=== PATIENT | male | born 1940 | race Caucasian/White ===

== ENCOUNTER → 2021-06-16 13:51 | Outpatient (BNVA) | payer MEDICARE, SELFPAY | PROVIDERS: Family Provider Family Medicine; PCP Family Medicine; Visit Provider Nurse Practitioner Family | DX: R39.9 Unspecified symptoms and signs involving the genitourinary system (principal); R35.0 Frequency of micturition; R82.81 Pyuria | CPT/HCPCS: 81003; 87077; 87086; 87184 ==

== ENCOUNTER → 2021-07-07 07:55 | Outpatient (BNVA) | payer MEDICARE, SELFPAY | PROVIDERS: Family Provider Family Medicine; PCP Family Medicine; Visit Provider Urology | DX: R39.9 Unspecified symptoms and signs involving the genitourinary system | CPT/HCPCS: 81003 ==

== ENCOUNTER → 2021-08-20 09:19 | Outpatient (BNVA) | payer MEDICARE, SELFPAY | PROVIDERS: Family Provider Family Medicine; PCP Family Medicine; Visit Provider Urology | DX: N39.0 Urinary tract infection, site not specified (principal) | CPT/HCPCS: 81003 ==

== ENCOUNTER 2021-12-02 09:32 | Outpatient (CLI) | payer MEDICARE, SELFPAY ==
--- NOTE | 2021-12-02 09:42 | MM_ITS ---
WS: [id number] DIAGNOSTIC BILATERAL 3D TOMOSYNTHESIS DIGITAL MAMMOGRAM WITH CAD RIGHT breast ultrasound, limited. HISTORY: RT BREAST LUMP 9 O'CLOCK COMPARISON: None available. TECHNIQUE: Bilateral craniocaudad, mediolateral oblique, and mediolateral views are submitted. Spot c ompression RIGHT CC. Computer aided detection utilized. Breast composition: There are scattered areas of fibroglandular density. There is a dense soft tissue mass centered just posterior to the RIGHT nipple measuring 3.2 x 2.1 cm. No corresponding abnormalit y on the LEFT. No suspicious calcifications or nipple retraction. RIGHT breast ultrasound, limited. There is a focal ill-defined soft tissue mass of decreased echogenicity posterior to the area look. T his mass measures 2.8 x 0.8 x 1.9 cm. Slight increased vascularity. Mass does not have the typical ap pearance of gynecomastia. I still suspect this is probably gynecomastia. MM/[place] [address] IMPRESSION: BI-RADS: 4-Suspicious Finding-Biopsy Should Be Considered FOLLOW UP: Biopsy Recommended Ultrasound-guided biopsy recommended of the soft tissue mass posterior to the R IGHT nipple. Favor this is probably an atypical site of gynecomastia.
== END 2021-12-02 09:33 | disposition home or self-care (01) ==
LOC: RAD 09:33
PROVIDERS: Family Provider Family Medicine; PCP Family Medicine; Visit Provider Family Medicine
DX: N63.15 Unspecified lump in the right breast, overlapping quadrants (principal)
CPT/HCPCS: 76642; 77062

== ENCOUNTER 2021-12-18 10:52 | Emergency (ER) | payer MEDICARE, SELFPAY ==
--- NOTE | 2021-12-18 10:56 | CT_ITS ---
WS: [id number] CT HEAD NONCONTRAST HISTORY: ams TECHNIQUE: Contiguous axial imaging performed through the brain in 2.5 mm imaging. Bone and soft tiss ue windows. Sagittal and coronal reformats reviewed. All CT scans at [facility] use at least one of these dose optimization techniques: automated exposure control; mA and/or kV adjustment per pa tient size (includes targeted exams where dose is matched to clinical indication); or iterative recon struction. DLP: 965.45 mGy.cm COMPARISON: None available. No acute intracranial hemorrhage, midline shift or mass effect. Mild bilateral atrophy and mild chronic microvascular ischemic disease. Calcification is noted along the interhemispheric falx. Ventricles: Normal size with no hydrocephalus. No inferior displacement of the cerebellar tonsils. Mild atherosclerosis intracranial carotid arterie s. Paranasal sinuses: As visualized are clear. Mastoid air cells: Well pneumatized. Calvarium and scalp: Skull is intact with no soft tissue edema or swelling. CT/CT head wo con* 19080 IMPRESSION: 1. No acute intracranial hemorrhage. 2. Mild atrophy and mild small vessel ischemic disease.
--- NOTE | 2021-12-18 10:56 | XR_ITS ---
WS: [email or web address] Portable AP upright chest, 12/18/2021 Clinical Data: ams Comparison: None. Findings: No nodules, masses or effusions are seen. The heart is normal. The pulmonary vascularity is not increased. No pneumonia or pneumothorax is seen. The right diaphragm is elevated. The aortic arc h and descending thoracic aorta show minimal calcification and tortuosity. XR/XR chest 1V portable [id number] Impression: Atherosclerosis.
--- NOTE | 2021-12-18 10:57 | ECG_ITS ---
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 Measurements Intervals [place] Rate: 51 P: 35 LA: 201 QRS: -34 QRSD: 115 T: 51 QT: 401 QTc: 370 Interpretive Statements SINUS BRADYCARDIA WITH OCCASIONAL SUPRAVENTRICULAR PREMATURE COMPLEXES LEFT AXIS DEVIATION [QRS AXIS < -30] ANTEROSEPTAL MYOCARDIAL INFARCTION , OF INDETERMINATE AGE [40+ ms Q WAVE IN V1-V4] INTERPRETATION BASED ON A DEFAULT AGE OF 40 YEARS No previous ECG available for comparison Electronically Signed On 12-18-2021 18:08:02 CDT by Julio Benitez M.D. [id number] f
[2021-12-18 11:11] VITALS: BP 153/94; PULSE 72; RESP 15; TEMP 36.7; O2SAT 97; BMI 27.6
[2021-12-18 11:39] VITALS: BP 141/80; PULSE 52; RESP 16; O2SAT 98
[2021-12-18 11:52] LABS: Basophils # 0.1 10^3/uL (0.0-0.1); Basophils % 0.9 %; Eosinophils # 0.2 10^3/uL (0.0-0.8); Eosinophils % 4.2 %; Hematocrit 44.2 % (42.0-52.0); Hemoglobin 14.6 g/dL (11.7-16.6); Lymphocytes # 1.4 10^3/uL (0.8-4.8); Lymphocytes % 24.8 %; Mean Corpuscular Hemoglobin 31.3 pg (28.0-34.0); Mean Corpuscular Volume 94.6 fl (80-94); Mean Platelet Volume 10.7 fL (7.4-10.4); Monocytes # 0.5 10^3/uL (0.2-0.9); Monocytes % 7.8 %; Neutrophils # 3.59 10^3/uL (1.8-7.7); Neutrophils % 62.1 %; Nucleated Red Blood Cells % 0 %; Platelet Count 168 10^3/cmm (130-400); Red Blood Count 4.67 10^6/uL (4.1-5.3); Red Cell Distribution Width 13.3 % (12.1-15.1); White Blood Count 5.8 10^3/uL (4.0-10.0)
[2021-12-18 12:24] LABS: Alanine Aminotransferase 23 U/L (0-41); Albumin Level 4.7 g/dL (3.5-5.2); Alkaline Phosphatase 44 IU/L (40-130); Anion Gap 15.9 (5-19); Aspartate Amino Transferase 27 U/L (0-40); Blood Urea Nitrogen 21 mg/dL (8-23); Carbon Dioxide 24 mmol/L (22-29); Chloride 103 mmol/L (98-107); Creatinine Clr Calc Pharmacy 69.7185; Globulin 2.5 g/dL (1.3-4.6); Glucose 113 mg/dL (65-115); Lipase 35 U/L (13-60); Osmolality Calculated 292 mOsm/kg (285-295); Potassium 3.9 mmol/L (3.5-5.1); Sodium 139 mmol/L (136-145); Total Bilirubin 0.5 mg/dL (0.15-1.2); Total Protein 7.2 g/dL (6.6-8.7)
--- NOTE | 2021-12-18 12:28 | W.ED.GENADLT ---
HPI - General Adult General: Chief complaint: Altered Mental Status Stated complaint: AMS Time Seen by Provider: 12/18/21 11:29 History of Present Illness: Patient is a 81-year-old male with history of hypertension, recurrent UTI, aortic valve replacement who presents the emergency room for concerns of acute transient memory loss. Patient tells me that he was raking stones earlier today when he suddenly became disoriented. Patient tells me for 30 minutes he cannot remember who he was where he was or any details about his life. After that period of time, patient regained all memory. Patient reports that he did not have any other focal neurological deficit during this time. Patient also denies any sensation of lightheadedness, chest pain, shortness breath, palpitation, nausea/vomiting, fever/chills. Patient tells me 5 years ago he has had similar episode of transient memory loss lasting for similar period of time. Onset:1 hr ago Duration:30 minutes Location:home Severity:moderate Associated symptoms: Deny chest pain, dyspnea, nausea, rash, palpitations or vomiting Review of Systems Const: Denies: fever(s) or chills Eyes: Denies: change in vision ENMT: Denies: mouth pain Card: Denies: chest pain or palpitations Resp: Denies: dyspnea or non-productive cough GI: Denies: abdominal pain, nausea, vomiting or diarrhea : Denies: dysuria Musc: Denies: extremity pain Skin/Breast: Denies: rash or new lesions Neuro: Reports: other (+transient memory loss); Denies: weakness in extremities Psych: Reports: other (Normal mood) Glen/Lymph: Denies: easy bruising PFSH ED PFSH: Medical History History of hypertension Lower urinary tract symptoms (LUTS) Recurrent UTI Surgical History Hx of aortic valve replacement Family History Father , AT AGE 84 PROSTATE CANCER Cancer Sister Cancer BREAST Mother , at age 62 Aortic aneurysm Social History Alcohol intake: former Marital status: Current occupational status: retired History of recent travel: No Physical Exam Const: COMMON NORMALS: alert HENMT: COMMON NORMALS: atraumatic HEAD & SCALP: atraumatic MOUTH: moist mucous membranes not abnormal Eye: COMMON NORMALS: EOMs intact bilaterally and conjunctivae normal CONJUNCTIVA: Yes conjunctivae normal Neck/C-Spine: COMMON NORMALS: full ROM and supple Resp: COMMON NORMALS: normal respiratory effort and clear to auscultation bilaterally AUSCULTATION: clear to auscultation bilaterally Cardio: COMMON NORMALS: regular rate RATE: regular rate GI: COMMON NORMALS: Soft to palpation and non-tender PALPATION: Yes Soft to palpation Extremity: COMMON NORMALS: full ROM Neuro: SENSORIUM/ORIENTATION: Yes alert MOTOR EXAM: No Abnormal motor strength present and Other motor observations present (no focal motor deficits) OTHER: Mental status? Awake, alert, and oriented to self, year, month, location, and situation.? Following simple axial and appendicular commands.? Has appropriate fund of knowledge, comprehension, and insight.? Able to recall and understands pertinent aspects of medical history and current treatment status.? ? Language? Speech is fluent without word-finding difficulties.? Intact naming, expression, reception manager, and repetition.? ? Cranial nerves? 2,3,4,6: PERRL, EOMI with no nystagmus. 5: Intact sensation to light touch, symmetric? 7: Smile symmetrical, no facial droop.? 8: Hearing grossly intact.? 9,10: Normal palate movement.? 11: Normal strength in trapezius bilaterally 12: Tongue protrudes midline.? ? Motor examination? Normal bulk & tone. Strength as follows (R/L): Delts (5/5), Biceps (5/5), Triceps (5/5), Wrist ext (5/5), hip flexors (5/5), plantarflexors (5/5), dorsiflexors (5/5). Sensation? Light Touch: Grossly intact and equal in upper and lower extremities bilaterally? Romberg: Negative.? Distal joint position sense intact ? Coordination? Aipdaq-hn-ujyk-finger movements intact without dysmetria or past-pointing.? Rapid fingertaps: preserved amplitude without decriment.? No tremor, myoclonus or truncal ataxia.? ? Gait/stance? Steady, normal narrow base gait with appropriate arm swing and turning.? Tandem gait without hesitation or loss of balance. Psych: COMMON NORMALS: speech normal SPEECH: Yes normal speech MOOD & AFFECT: Yes euthymic mood Course Vital Signs: Vital signs: Vital Signs Temperature 98.0 F 12/18/21 11:11 Pulse Rate 63 12/18/21 13:30 Respiratory Rate 18 12/18/21 13:30 Blood Pressure 148/79 12/18/21 13:30 Pulse Oximetry 97 12/18/21 13:30 [facility] - General Adult Medical Decision Making 81-year-old male with history of UTI, hypertension, aortic valve replacement presenting to the emergency room with transient memory loss. Patient says that he is no longer disoriented and remember things currently. Physical exam, patient has intact neuro logical exam. Given presentation, it is entirely unclear what happened. Patient's further transient episode of memory loss lasted for 30 minutes. Patient had a prior episode 5 years ago. Given transient altered mental status, I do not suspect this is TIA or stroke as patient did not have any other focal sensory or motor neurological deficits during the episode. Will work patient up for altered mental status. Lab work-up showed no focal findings. CT brain is negative for any acute findings. X-ray chest not showing signs of pneumonia. I do not suspect the patient had any cardiac event or syncope during the these episode as patient was awake and alert and did not report any sensation of lightheadedness. It is unclear at this point what exactly happened earlier today. I have given patient follow up with our employment evaluator/case manager to be seen by our outpatient Neuroogy for evaluation for transient memory loss. Patient aware of a call from our employment evaluator/case manager to schedule for appointment(s) and verbalizes understanding of the importance of following up. Disposition: Discharge. Patient counseled regarding diagnostic impression, treatment plan. Patient given ED strict return precautions to return for continuation, worsening, or development of new symptoms. Instructed to f/u w/ PCP and Neurology regarding symptoms today. Patient verbalized understanding. Lab Data : 12/18/21 11:45 12/18/21 11:45 Radiology Impressions Chest X-Ray 12/18/21 10:56 Impression: Atherosclerosis. Head CT 12/18/21 10:56 IMPRESSION: 1. No acute intracranial hemorrhage. 2. Mild atrophy and mild small vessel ischemic disease. Laboratory Results WBC 5.8 10^3/uL (4.0-10.0) 12/18/21 11:45 RBC 4.67 10^6/uL (4.1-5.3) 12/18/21 11:45 Hgb 14.6 g/dL (11.7-16.6) 12/18/21 11:45 Hct 44.2 % (42.0-52.0) 12/18/21 11:45 MCV 94.6 fl (80-94) H 12/18/21 11:45 MCH 31.3 pg (28.0-34.0) 12/18/21 11:45 MCHC 33.0 g/dL (30.0-36.0) 12/18/21 11:45 RDW 13.3 % (12.1-15.1) 12/18/21 11:45 Plt Count 168 10^3/cmm (130-400) 12/18/21 11:45 MPV 10.7 fL (7.4-10.4) H 12/18/21 11:45 Neut % (Auto) 62.1 % 12/18/21 11:45 Lymph % (Auto) 24.8 % 12/18/21 11:45 Travis % (Auto) 7.8 % 12/18/21 11:45 Eos % (Auto) 4.2 % 12/18/21 11:45 Baso % (Auto) 0.9 % 12/18/21 11:45 Neut # (Auto) 3.59 10^3/uL (1.8-7.7) 12/18/21 11:45 Lymph # (Auto) 1.4 10^3/uL (0.8-4.8) 12/18/21 11:45 Travis # (Auto) 0.5 10^3/uL (0.2-0.9) 12/18/21 11:45 Eos # (Auto) 0.2 10^3/uL (0.0-0.8) 12/18/21 11:45 Baso # (Auto) 0.1 10^3/uL (0.0-0.1) 12/18/21 11:45 Nucleated RBC % (auto) 0 % 12/18/21 11:45 Nucleated RBCs # 0.0 /100WBC 12/18/21 11:45 Sodium 139 mmol/L (136-145) 12/18/21 11:45 Potassium 3.9 mmol/L (3.5-5.1) 12/18/21 11:45 Chloride 103 mmol/L (98-107) 12/18/21 11:45 Carbon Dioxide 24 mmol/L (22-29) 12/18/21 11:45 Anion Gap 15.9 (5-19) 12/18/21 11:45 BUN 21 mg/dL (8-23) 12/18/21 11:45 Creatinine 0.9 mg/dL (0.7-1.2) 12/18/21 11:45 GFR Calculation Not Reportable 12/18/21 11:45 Glucose 113 mg/dL (65-115) 12/18/21 11:45 Calculated Osmolality 292 mOsm/kg (285-295) 12/18/21 11:45 Calcium 10.0 mg/dL (8.5-10.5) 12/18/21 11:45 Total Bilirubin 0.5 mg/dL (0.15-1.2) 12/18/21 11:45 AST 27 U/L (0-40) 12/18/21 11:45 ALT 23 U/L (0-41) 12/18/21 11:45 Alkaline Phosphatase 44 IU/L (40-130) 12/18/21 11:45 Troponin T Baseline 17 ng/L (0-15) H 12/18/21 11:45 Troponin T 120 Minute 14.94 ng/L (0-15) 12/18/21 13:48 Delta Troponin T -2.06 ABS# (0-10) L 12/18/21 13:48 Total Protein 7.2 g/dL (6.6-8.7) 12/18/21 11:45 Albumin 4.7 g/dL (3.5-5.2) 12/18/21 11:45 Globulin 2.5 g/dL (1.3-4.6) 12/18/21 11:45 Lipase 35 U/L (13-60) 12/18/21 11:45 Urine Color Yellow (Yellow) 12/18/21 13:00 Urine Appearance Clear (CLEAR) 12/18/21 13:00 Urine pH 6 (5-7) 12/18/21 13:00 Ur Specific [place] 1.010 (1.005-1.030) 12/18/21 13:00 Urine Protein Neg (Negative) 12/18/21 13:00 Urine Glucose (UA) Norm (Normal) 12/18/21 13:00 Urine Ketones Negative (Negative) 12/18/21 13:00 Urine Blood Neg (Negative) 12/18/21 13:00 Urine Nitrate Negative (Negative) 12/18/21 13:00 Urine Bilirubin Neg (Negative) 12/18/21 13:00 Urine Urobilinogen Norm mg/dL (Negative) 12/18/21 13:00 Ur Leukocyte Esterase Negative (Negative) 12/18/21 13:00 Imaging Data Other Imaging: Radiologist's impression: [employer] [place] [address] CT Scan Report Signed Patient: Magdy Varner Unit #: [id number] : 1940 Age/Sex: 81 / M ADM Date: 12/18/21 Loc: ER Room/Bed: Attending Dr: Ordering Provider/Ordering MD: Ami Stinson MD Date of Service: 12/18/21 Procedure(s): CT head wo con* [id number] Accession Number(s): [id number] Report Number: [id number] WS: [id number] CT HEAD NONCONTRAST HISTORY: ams TECHNIQUE: Contiguous axial imaging performed through the brain in 2.5 mm imaging. Bone and soft tissue windows. Sagittal and coronal reformats reviewed.? [facility] at [facility] one of these dose optimization techniques: automated exposure control; mA and/or kV adjustment per patient size (includes targeted exams where dose is matched to clinical indication); or iterative reconstruction. DLP: 965.45 mGy.cm COMPARISON: None available. No acute intracranial hemorrhage, midline shift or mass effect. Mild bilateral atrophy and mild chronic microvascular ischemic disease. Calcification is noted along the interhemispheric falx. Ventricles:? Normal size with no hydrocephalus. No inferior displacement of the cerebellar tonsils. Mild atherosclerosis intracranial carotid arteries. Paranasal sinuses: As visualized are clear. Mastoid air cells: Well pneumatized. Calvarium and scalp: Skull is intact with no soft tissue edema or swelling. CT/CT head wo con* [id number] IMPRESSION: ? 1.? No acute intracranial hemorrhage. 2.? Mild atrophy and mild small vessel ischemic disease. ? Dictated By: Lupe Hutchins DO Signed By: Lupe Hutchins DO Signed Date/Time: 12/18/21 1229 DD/ [address] [address] XRay Report Signed Patient: Magdy Varner Unit #: [id number] : 1940 Age/Sex: 81 / M ADM Date: 12/18/21 Loc: ER Room/Bed: Attending Dr: Ordering Provider/Ordering MD: Ami Stinson MD Date of Service: 12/18/21 Procedure(s): XR chest 1V portable [id number] Accession Number(s): [id number] Report Number: [id number] WS: [email or web address] Portable AP upright chest, 12/18/2021 Clinical Data: ams Comparison: None. Findings: No nodules, masses or effusions are seen. The heart is normal. The pulmonary vascularity is not increased. No pneumonia or pneumothorax is seen. The right diaphragm is elevated. The aortic arch and descending thoracic aorta show minimal calcification and tortuosity. XR/XR chest 1V portable [id number] Impression: Atherosclerosis. ? Dictated By: Fina Boone MD Signed By: Fina Boone MD Signed Date/Time: 12/18/21 1153 DD/ 1153 Discharge Plan Discharge Patient Disposition: Home Clinical Impression: Intermittent memory loss Condition: Stable Prescriptions: No Action aspirin [Adult Aspirin Regimen] 81 mg tablet,delayed release (DR/EC) 81 mg PO DAILY 0RF atorvastatin 40 mg tablet 40 mg PO DAILY 0RF nitrofurantoin monohyd/m-cryst [Macrobid] 100 mg capsule 100 mg PO BID PRN0RF Rx Instructions: must administer with a meal/food carvedilol 6.25 mg tablet 3.125 mg PO BID Qty: 180 3RF Rx Instructions: must administer with a meal/food losartan 25 mg tablet 25 mg PO DAILY Qty: 90 3RF Discharge Orders: Discharge ED (Routine); Ordered 12/18/21 Ordered By: Ami Stinson Referrals: Daya Velez MD [Primary Care Provider] - Discharge Diet: Advance as tolerated Discharge Activity: Increase activity as tolerated Patient Instructions: Transient Global Amnesia (ED) Activity Restrictions/Additional Instructions: Our employment evaluator/case manager will have you follow-up with a Neurologist in the next few days. You would be expected to have a phone call with our employment evaluator/case manager who will put you on the schedule. You can expect a call from us in the next 2-3 days. If you don't hear from us, call us back in the emergency room at [phone]. Come back to the emergency room if any weakness in your arms or legs, if you have any facial droop, double vision, visual blindness, visual field deficits, balance problem, inability to walk, language difficulties or any new or concerning complaints. Coding Level of Care Code ED Hospice Volunteer for Angelia Fwbrannon Exam Comprehensive
[2021-12-18 12:29] LABS: Troponin(5th) Baseline 17 ng/L (0-15)
[2021-12-18 12:47] VITALS: BP 141/80; PULSE 60; RESP 20; O2SAT 97
--- NOTE | 2021-12-18 12:57 | ECG_ITS ---
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 Measurements Intervals [place] Rate: 51 P: 35 MN: 201 QRS: -34 QRSD: 115 T: 51 QT: 401 QTc: 370 Interpretive Statements SINUS BRADYCARDIA WITH OCCASIONAL SUPRAVENTRICULAR PREMATURE COMPLEXES LEFT AXIS DEVIATION [QRS AXIS < -30] ANTEROSEPTAL MYOCARDIAL INFARCTION , OF INDETERMINATE AGE [40+ ms Q WAVE IN V1-V4] No previous ECG available for comparison Electronically Signed On 12-18-2021 18:13:20 CDT by Julio Benitez M.D. [id number] f
[2021-12-18 13:10] LABS: Add Urine Microscopic? NO; Charge for UA Resulting for Rev
[2021-12-18 13:30] VITALS: BP 148/79; PULSE 63; RESP 18; O2SAT 97
[2021-12-18 13:31] LABS: Bilirubin Urine Neg (Negative); Blood Urine Neg (Negative); Glucose Urine UA Norm (Normal); Ketones Urine Negative (Negative); Nitrate Urine Negative (Negative); Protein Urine Neg (Negative); Urine Appearance Clear (CLEAR); Urine Color Yellow (Yellow); pH Urine 6 (5-7)
[2021-12-18 13:32] LABS: Leukocyte Esterase Urine Negative (Negative); Urobilinogen Urine Norm (Negative)
[2021-12-18 14:21] LABS: Troponin 5 2HR 14.94 ng/L (0-15)
[2021-12-18 14:51] LABS: Troponin 5 2HR Delta -2.06 ABS# (0-10)
--- NOTE | 2021-12-19 15:01 | DCPLANNER ---
Addendum entered by Ana Marina 01/07/22 20:12: Patient had a follow up appointment scheduled with Dr. Baires - appointment was rescheduled. Addendum entered by Ana Marina 01/01/22 17:03: Patient has a follow up appointment scheduled for Wednesday, January 05, 2022 at 12:30 with Jeronimo at neurology. Clinic will call patient with appointment information. Original Note: onsite case manager had message to schedule a follow up appointment for patient with neurology. onsite case manager sent patients information to the front staff at neurology. Patients information will be printed and reviewed. Clinic will call patient with appointment information.
== END 2021-12-18 14:54 | disposition home or self-care (01) ==
PROVIDERS: Emergency Provider Emergency Medicine; PCP Family Medicine
DX: R41.3 Other amnesia (principal); I10 Essential (primary) hypertension; Z87.440 Personal history of urinary (tract) infections; Z95.2 Presence of prosthetic heart valve; Z79.82 Long term (current) use of aspirin
CPT/HCPCS: 36415; 70450; 71045; 80053; 81003; 83690; 84484; 85025; 93005; 99283

== ENCOUNTER 2021-12-26 07:51 | Outpatient (CLI) | payer MEDICARE, SELFPAY ==
--- NOTE | 2021-12-26 07:58 | US_ITS ---
WS: [email or web address] ULTRASOUND-GUIDED RIGHT BREAST BIOPSY HISTORY: ABNORMAL MAMMO R BREAST, male patient. COMPARISON: 12/02/2021 ultrasound and mammogram Procedure, risks and complications are explained to the patient. Medications are reviewed. Consent is obtained. The mass in the RIGHT breast is localized with ultrasound. Mass localizes to the subareolar region. S kin is cleansed with ChloraPrep and anesthetized with 1% buffered lidocaine. Small dermatome is made. Under sterile conditions mass is biopsied with a 14-gauge Achieve needle. Multiple core biopsies are performed. Material placed in formalin and sent to pathology for review. No complications encountere d. Breast tissue marker (Wir3s ultrasound enhanced ribbon): None. Patient left the radiology suite with no complications. Patient is instructed to return to [facility] or [facility] with any concerns. US/[place] [id number] IMPRESSION: 1. Uncomplicated core needle biopsy RIGHT breast asymmetry in the subareolar r egion. PATHOLOGY: Benign fibroadipose tissue with stromal sclerosis and chronic inflam mation. No malignancy. RECOMMENDATION: See report No further evaluation is necessary unless clinically there is continued concern for this nodule or increases in size. If there is an increase in size or kamar rning features clinically, surgical removal should be considered.
== END 2021-12-26 07:52 | disposition home or self-care (01) ==
LOC: RAD 07:52
PROVIDERS: PCP Family Medicine; Visit Provider Family Medicine
DX: N63.41 Unspecified lump in right breast, subareolar (principal)
CPT/HCPCS: 19083; 88305

== ENCOUNTER 2022-04-09 06:00 | Outpatient (RCR) | payer MEDICARE, SELFPAY | END 2022-04-23 23:59 | disposition home or self-care (01) | LOC: GPT 06:00 | PROVIDERS: PCP Family Medicine; Referring Provider Nurse Practitioner Family; Visit Provider Nurse Practitioner Family | DX: M25.532 Pain in left wrist (principal) | CPT/HCPCS: 97110; 97140; 97161; 97164 ==

== ENCOUNTER 2022-07-08 10:41 | Outpatient (CLI) | payer MEDICARE, SELFPAY ==
--- NOTE | 2022-07-08 11:15 | USCV_ITS ---
Magdy Varner Age: 82 Gender: M : 1940 Exam Date: 07/08/2022 11:01 Ordering Phys: Modesto Castillo MD ([email or web address]) Technologist: Scot Rubio Exam Location: [facility] Indication: dyspnea BP: 132 / 74 HR: 76 Rhythm: Sinus Technical Quality: Adequate MEASUREMENTS (Male / Female) Normal Values 2D ECHO LV Diastolic Diameter PLAX 3.8 cm 4.2 - 5.9 / 3.9 - 5.3 cm LV Systolic Diameter PLAX 2.4 cm IVS Diastolic Thickness 1.0 cm 0.6 - 1.0 / 0.6 - 0.9 cm IVS Systolic Thickness 1.3 cm LVPW Diastolic Thickness 1.7 cm 0.6 - 1.0 / 0.6 - 0.9 cm LVPW Systolic Thickness 1.8 cm LVOT Diameter 2.0 cm LV Ejection Fraction 2D Teich 69.3 % LV Ejection Fraction MOD 2C 65.6 % LV Ejection Fraction 2C AL 66.4 % LA Diameter 3.6 cm LA Width 4.3 cm LA Height 5.2 cm RA Width 4.1 cm RA Height 5.4 cm Aorta at Sinotubular Diameter 2.9 cm M-MODE Aortic Annulus Diameter 2.8 cm LA Ao Ratio MM 1.3 MV E Point Septal Separation 1.1 cm DOPPLER AV Peak Velocity 265.5 cm/s LVOT Peak Velocity 97.0 cm/s AV Area Cont Eq vti 1.2 cm squared AV Area Cont Eq pk 1.2 cm squared MV Peak Velocity 119.0 cm/s MV Area PHT 3.3 cm squared Mitral E to A Ratio 0.8 MV E' Velocity 74.0 cm/s TR Peak Velocity 262.5 cm/s TR Peak Gradient 27.6 mmHg TR Mean Velocity 195.2 cm/s TR Mean Gradient 16.5 mmHg TR Velocity Time Integral 73.2 cm Right Atrial Pressure 3.0 mmHg Pulmonary Artery Systolic Pressu 30.6 mmHg PV Peak Velocity 73.0 cm/s RV Acceleration Time 0.1 s RV Ejection Time 0.3 s RV AcT/ET 0.4 FINDINGS Left Ventricle Normal left ventricular size and systolic function, EF 69 %. No regional wall motion abnormalities. Mild left ventricular hypertrophy. Grade I/IV diastolic dysfunction (abnormal relaxation filling pattern), normal to mildly elevated filling pressures. Right Ventricle The right ventricle is normal in size and function. Right Atrium The right atrium is normal in size. Left Atrium Mildly increased left atrial size. Mitral Valve Thickened mitral valve. Trace mitral valve regurgitation. Aortic Valve Bioprosthetic valve at the aortic position appears to be well- seated. Peak velocity of 2.72 m/s with a peak gradient of 29.5 and a mean gradient of 13 mmHg. The valve area is calculated to be 1.2 cm squared Tricuspid Valve Mild tricuspid valve regurgitation. Estimated pulmonary artery peak systolic pressure 31 mmHg Pulmonic Valve No gross abnormalities noted Pericardium Normal pericardium without effusion. Aorta Normal ascending aorta dimension. IVC The inferior vena cava appears normal. CONCLUSIONS Normal left ventricular size and systolic function, EF 69 %. No regional wall motion abnormalities. Mild left ventricular hypertrophy. Grade I/IV diastolic dysfunction (abnormal relaxation filling pattern), normal to mildly elevated filling pressures. Bioprosthetic valve at the aortic position appears to be well- seated. Peak velocity of 2.72 m/s with a peak gradient of 29.5 and a mean gradient of 13 mmHg. The valve area is calculated to be 1.2 cm squared Mild tricuspid valve regurgitation. Estimated pulmonary artery peak systolic pressure 31 mmHg Thickened mitral valve. Trace mitral valve regurgitation. There is no pericardial effusion. There are no intracardiac masses. Compared to the study from 12/21/2018, the aortic valve appears to be replaced Dr Modesto Castillo MD [facility] (Electronically Signed) Final Date: 09 July 2022 08:43 S
== END 2022-07-08 10:42 | disposition home or self-care (01) ==
LOC: RAD 10:42
PROVIDERS: PCP Family Medicine; Visit Provider Internal Medicine Cardiovascular Disease
DX: R06.00 Dyspnea, unspecified (principal); Z95.2 Presence of prosthetic heart valve; I07.1 Rheumatic tricuspid insufficiency
CPT/HCPCS: 93306

== ENCOUNTER → 2022-08-20 09:01 | Outpatient (BNVA) | payer MEDICARE, SELFPAY | PROVIDERS: PCP Family Medicine; Visit Provider Urology | DX: N40.1 Benign prostatic hyperplasia with lower urinary tract symptoms (principal); N39.0 Urinary tract infection, site not specified; R39.9 Unspecified symptoms and signs involving the genitourinary system | CPT/HCPCS: 51741; 51798; 81003; 99213 ==

== ENCOUNTER → 2022-09-15 10:17 | Outpatient (BNVA) | payer MEDICARE, SELFPAY | PROVIDERS: PCP Family Medicine; Visit Provider Internal Medicine Cardiovascular Disease | DX: I10 Essential (primary) hypertension (principal); Z95.2 Presence of prosthetic heart valve; E78.5 Hyperlipidemia, unspecified | CPT/HCPCS: 99214 ==

== ENCOUNTER → 2023-03-29 11:18 | Outpatient (BNVA) | payer MEDICARE, SELFPAY | PROVIDERS: PCP Family Medicine; Visit Provider Internal Medicine Cardiovascular Disease | DX: I10 Essential (primary) hypertension (principal); Z95.2 Presence of prosthetic heart valve; E78.5 Hyperlipidemia, unspecified | CPT/HCPCS: 99214 ==

== ENCOUNTER → 2023-12-09 10:53 | Outpatient (BNVA) | payer MEDICARE, SELFPAY | PROVIDERS: PCP Family Medicine; Visit Provider Internal Medicine Cardiovascular Disease | DX: I10 Essential (primary) hypertension (principal); Z95.2 Presence of prosthetic heart valve; E78.5 Hyperlipidemia, unspecified | CPT/HCPCS: 99214 ==

== ENCOUNTER 2023-12-20 08:28 | Outpatient (CLI) | payer MEDICARE, SELFPAY ==
--- NOTE | 2023-12-20 08:45 | USCV_ITS ---
Magdy Varner Age: 83 Gender: M : 1940 Exam Date: 12/20/2023 09:05 Ordering Phys: Modesto Castillo MD ([email or web address]) Technologist: CLEMENTE Exam Location: [facility] [place] Indication: AOV replacment for AO stenosis BP: 128 / 80 HR: 167 Rhythm: Other Technical Quality: Adequate MEASUREMENTS (Male / Female) Normal Values 2D ECHO LV Diastolic Diameter PLAX 5.2 cm 4.2 - 5.9 / 3.9 - 5.3 cm IVS Diastolic Thickness 1.2 cm 0.6 - 1.0 / 0.6 - 0.9 cm IVS Systolic Thickness 2.0 cm LVPW Diastolic Thickness 1.1 cm 0.6 - 1.0 / 0.6 - 0.9 cm LVPW Systolic Thickness 2.0 cm LVOT Diameter 2.2 cm LV Ejection Fraction 2D Teich 74.2 % LV Ejection Fraction MOD 2C 41.9 % LV Ejection Fraction 2C AL 49.5 % LA Diameter 3.6 cm RA Systolic Volume 4C AL 29.9 ml RA Systolic Volume 4C MOD 28.7 ml LA Sys Volume AL 50.5 cm cubed LA Sys Volume Index AL 17.7 cm cubed/m squared Aorta at Sinotubular Diameter 3.3 cm IVC Diameter 1.1 cm M-MODE LA Ao Ratio MM 1.4 AV Cusp Separation MM 1.3 cm DOPPLER AV Peak Velocity 269.0 cm/s LVOT Peak Velocity 94.0 cm/s AV Area Cont Eq vti 1.2 cm squared AV Area Cont Eq pk 1.3 cm squared MV Peak Velocity 100.0 cm/s MV Area PHT 3.5 cm squared Mitral E to A Ratio 0.8 TV Peak Velocity 158.5 cm/s TR Peak Velocity 161.0 cm/s TR Peak Gradient 10.4 mmHg TR Mean Velocity 173.0 cm/s TR Mean Gradient 14.3 mmHg TR Velocity Time Integral 51.2 cm Right Atrial Pressure 3.0 mmHg Pulmonary Artery Systolic Pressu 13.4 mmHg PV Peak Velocity 65.5 cm/s RV Ejection Time 0.4 s FINDINGS Left Ventricle Mild to moderate concentric left-ventricular hypertrophy. LV ejection fraction of 54%.abnormal septal motion consistent with conduction abnormality. Grade I/IV diastolic dysfunction (abnormal relaxation filling pattern), normal to mildly elevated filling pressures. Right Ventricle The right ventricle is normal in size and function. Right Atrium The right atrium is normal in size. Left Atrium Mildly increased left atrial size. Mitral Valve Thickened mitral valve. Mild mitral annular calcification. Aortic Valve The bioprosthetic valve in the aortic position appears to be well-seated.mild aortic valve regurgitation. The peak velocity across the valve is 2.69 m/s with a peak gradient of 29 and a mean gradient of 17 mmHg. The valve area calculated to be 1.24 cm squared Tricuspid Valve Trace tricuspid valve regurgitation. Pulmonic Valve Pulmonic valve not well visualized. Pericardium Normal pericardium without effusion. Aorta Normal ascending aorta dimension. IVC Inferior vena cava not visualized. CONCLUSIONS Mild to moderate concentric left-ventricular hypertrophy. LV ejection fraction of 54%.abnormal septal motion consistent with conduction abnormality. Grade I/IV diastolic dysfunction (abnormal relaxation filling pattern), normal to mildly elevated filling pressures. Mildly increased left atrial size. The bioprosthetic valve in the aortic position appears to be well-seated.mild aortic valve regurgitation. The peak velocity across the valve is 2.69 m/s with a peak gradient of 29 and a mean gradient of 17 mmHg. The valve area calculated to be 1.24 cm squared. Trace tricuspid valve regurgitation. Thickened mitral valve. Mild mitral annular calcification. Estimated pulmonary artery peak systolic pressure, probably within normal limits There is no pericardial effusion. Compared to the study from 12/21/2018, the aortic valve appears replaced Dr Modesto Castillo MD [facility] (Electronically Signed) Final Date: 23 December 2023 07:52 S
== END 2023-12-20 08:29 | disposition home or self-care (01) ==
LOC: RAD 08:28
PROVIDERS: PCP Family Medicine; Visit Provider Internal Medicine Cardiovascular Disease
DX: I08.3 Combined rheumatic disorders of mitral, aortic and tricuspid valves (principal); Z95.2 Presence of prosthetic heart valve; R06.09 Other forms of dyspnea
CPT/HCPCS: 93306

== ENCOUNTER 2024-02-23 13:01 | Emergency (ER) | payer MEDICARE, SELFPAY ==
[2024-02-23 13:03] VITALS: BP 84/57; PULSE 73; RESP 23; TEMP 36.6; O2SAT 96; BMI 31.1
--- NOTE | 2024-02-23 13:03 | XR_ITS ---
WS: [id number] Exam: XR chest 1V portable [id number] Date/Time of Exam: 02/23/2024 1:20 PM Reason For Exam: sob Comparison 12/18/2021. There is plaque atelectasis in the RIGHT lower lobe with chronic elevation of the RIGHT diaphragm. No infiltrates are noted. No pneumothorax. Cardiomediastinal silhouette is unremarkable for technique. Signs of cardiac valve replacement. Regional bony structures appear normal. XR/XR chest 1V portable [id number] IMPRESSION: 1. Plaque atelectasis in the RIGHT lower lobe with chronic elevation of the RIG HT diaphragm. No acute process identified.
--- NOTE | 2024-02-23 13:22 | ECG_ITS ---
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 Measurements Intervals [place] Rate: 73 P: 47 LA: 203 QRS: -45 QRSD: 111 T: 59 QT: 399 QTc: 443 Interpretive Statements SINUS RHYTHM WITH OCCASIONAL SUPRAVENTRICULAR PREMATURE COMPLEXES LEFT AXIS DEVIATION [QRS AXIS < -30] POSSIBLE ANTERIOR MYOCARDIAL INFARCTION , OF INDETERMINATE AGE [30 ms Q WAVE IN V3/V4, OR R < 0.2 mV IN V4] Compared to ECG 12/18/2021 11:36:39 Sinus bradycardia no longer present Myocardial infarct finding still present Electronically Signed On 02-25-2024 13:33:13 CDT by Skyler Turpin M.D. [id number]
--- NOTE | 2024-02-23 13:29 | CTR_ITS ---
PROCEDURE INFORMATION: Exam: CT Head Without Contrast Exam date and time: 02/23/2024 2:05 PM Age: 83 years old Clinical indication: Dizziness and other: Weak; Additional info: Weakness TECHNIQUE: Imaging protocol: Computed tomography of the head without contrast. Radiation optimization: All CT scans at this facility use at least one of these dose optimization techniques: automated exposure control; mA and/or kV adjustment per patient size (includes targeted exams where dose is matched to clinical indication); or iterative reconstruction. COMPARISON: CT head wo con* [id number] 12/18/2021 12:17 PM RADIATION DOSE METRICS: Total DLP (mGy-cm): 1099 FINDINGS: Brain: Normal. No hemorrhage. Unremarkable white matter. No mass effect. Cerebral ventricles: No ventriculomegaly. Paranasal sinuses: Visualized sinuses are unremarkable. No fluid levels. Mastoid air cells: Visualized mastoid air cells are well aerated. Bones: Unremarkable. No acute fracture. Soft tissues: Unremarkable. CT/CT head wo con* [id number] IMPRESSION: No acute intracranial abnormality.
[2024-02-23 13:31] LABS: Basophils % 0.7 %; Hematocrit 41.7 % (37-53); Lymphocytes # 1.2 10^3/uL (0.8-4.8); Lymphocytes % 41.6 %; Mean Corpuscular HGB Conc 33.1 g/dL (30-55); Mean Corpuscular Hemoglobin 30.6 pg (27-33); Mean Corpuscular Volume 92.5 fl (82-101); Mean Platelet Volume 12.2 fL (7.4-10.4); Monocytes # 0.2 10^3/uL (0.2-0.9); Monocytes % 5.4 %; Neutrophils # 1.55 10^3/uL (1.8-7.7); Nucleated Red Blood Cells % 0 %; Platelet Count 68 10^3/cmm (157-399); Red Blood Count 4.51 10^6/uL (3.85-5.65); Red Cell Distribution Width 14.1 % (12.1-15.1); White Blood Count 2.98 10^3/uL (3.29-11.43)
--- NOTE | 2024-02-23 13:31 | ED_ITS ---
HPI - Weakness 2 General: Chief complaint: Weakness Stated complaint: A Fib, SOB, Time Seen by Provider: 02/23/24 13:03 Source: patient and EMS Mode of arrival: EMS Limitations: no limitations History of Present Illness: 83-year-old male states he was outside w [place] picking up limbs and doing yard work on Wednesday states that it felt like he got overheated and felt nauseous lightheaded states that ever since then he has been having just generally fatigue and not feeling well. He denies any chest pain had some mild dyspnea at times denies any fever or headache. Initial blood pressure was 8457 but did reposition his cuff and checked it while I was in the room and it is 106/61 currently. Denies any vomiting Associated symptoms: Denies chest pain, chills, fever(s), headache(s), nausea or vomiting Review of Systems 2 Const: Reports: fatigue and malaise; Denies: fever(s), chills, body aches or change in appetite ENMT: Denies: throat pain or dental pain Card: Denies: chest pain Resp: Denies: dyspnea GI: Denies: abdominal pain, nausea, vomiting or diarrhea Musc: Denies: neck pain or back pain Skin/Breast: Denies: rash Neuro: Denies: headache(s) PFSH ED 2 PFSH: Medical History Hx of hyperlipidemia Family hx of colon cancer Hx of cardiac murmur Hx of chronic arthritis Urinary frequency BPH loc w urin obs/LUTS Recurrent UTI Lower urinary tract symptoms (LUTS) History of hypertension Surgical History Hx of appendectomy Hx of colonoscopy Hx of nasal sinusotomy Hx of tonsillectomy Hx of hernia repair Hx of aortic valve replacement Family History Father , AT AGE 84 PROSTATE CANCER Cancer Lung disease Stroke Sister Cancer BREAST Lung disease Mother , at age 62 Aortic aneurysm CAD (coronary artery disease) Denies family history of Diabetes Clotting disorder Dementia Chronic kidney disease (CKD) Suicide Anesthesia complication Bleeding disorder Social History Smoking and tobacco/nicotine status: never used tobacco/nicotine Alcohol intake: former Marital status: Current occupational status: retired Physical Exam 2 Const: COMMON NORMALS: no acute distress, patient oriented x3 and healthy appearing HENMT: COMMON NORMALS: normocephalic and atraumatic HEAD & SCALP: n ormocephalic and atraumatic Neck/C-Spine: COMMON NORMALS: full ROM and supple Chest: COMMONS NORMALS: normal inspection of the chest and normal palpation of entire chest wall Resp: COMMON NORMALS: normal respiratory effort, No retractions, No use of accessory muscles and clear to auscultation bilaterally AUSCULTATION: clear to auscultation bilaterally Cardio: COMMON NORMALS: regular rate, regular rhythm and No murmurs present (Cardio) RATE: regular rate RHYTHM: regular rhythm GI: COMMON NORMALS: Normal to inspection, nondistended, normoactive bowel sounds present, Soft to palpation, non-tender and no masses PALPATION: Yes Soft to palpation Extremity: COMMON NORMALS: normal to inspection and full ROM Neuro: COMMON NORMALS: patient oriented x3, moves all extremities and no focal motor deficits Psych: COMMON NORMALS: mental status grossly normal, Normal thought process present and cooperative THOUGHT PROCESS: Normal thought process present Skin: COMMON NORMALS: no rashes or lesions noted and no wounds GENERAL SKIN EXAM: no rashes or lesions noted Course 2 Vital Signs: Vital signs: Vital Signs Temperature 97.9 F 02/23/24 13:03 Pulse Rate 83 02/23/24 15:19 Respiratory Rate 20 H 02/23/24 15:19 Blood Pressure 106/61 02/23/24 15:19 Pulse Oximetry 93 02/23/24 15:19 Oxygen Delivery Me thod Room Air 02/23/24 15:19 MDM - Weakness Medical Decision Making Patient presents here with fatigue weakness he is found to have a thrombocytopenia slight leukopenia he has had multiple tick bites he likely has a tickborne illness causing these findings he has no rash no bleeding feel he stable for discharge we will start him on doxycycline informed he is to follow- up with his PCP in 5 to 7 days to have his CBC rechecked he is return if he develops rash fever or worsening symptoms he understands agrees to plan Medical Records I reviewed the patient's medical records. Lab Data I reviewed the patient's lab results. 02/23/24 13:14 02/23/24 13:14 Radiology Impressions Chest X-Ray 02/23/24 13:03 IMPRESSION: 1. Plaque atelectasis in the RIGHT lower lobe with chronic elevation of the RIGHT diaphragm. No acute process identified. Head CT 02/23/24 13:29 IMPRESSION: No acute intracranial abnormality. Laboratory Results WBC 2.98 10^3/uL (3.29-11.43) L 02/23/24 13:14 RBC 4.51 10^6/uL (3.85-5.65) 02/23/24 13:14 Hgb 13.80 g/dL (11.27-16.99) 02/23/24 13:14 Hct 41.7 % (37-53) 02/23/24 13:14 MCV 92.5 fl (82-101) 02/23/24 13:14 MCH 30.6 pg (27-33) 02/23/24 13:14 MCHC 33.1 g/dL (30-55) 02/23/24 13:14 RDW 14.1 % (12.1-15.1) 02/23/24 13:14 Plt Count 68 10^3/cmm (157-399) L 02/23/24 13:14 MPV 12.2 fL (7.4-10.4) H 02/23/24 13:14 Neut % (Auto) 52.0 % 02/23/24 13:14 Lymph % (Auto) 41.6 % 02/23/24 13:14 [place] % (Auto) 5.4 % 02/23/24 13:14 Eos % (Auto) 0.0 % 02/23/24 13:14 Baso % (Auto) 0.7 % 02/23/24 13:14 Neut # (Auto) 1.55 10^3/uL (1.8-7.7) L 02/23/24 13:14 Lymph # (Auto) 1.2 10^3/uL (0.8-4.8) 02/23/24 13:14 [place] # (Auto) 0.2 10^3/uL (0.2-0.9) 02/23/24 13:14 Eos # (Auto) 0.0 10^3/uL (0.0-0.8) 02/23/24 13:14 Baso # (Auto) 0.0 10^3/uL (0.0-0.1) 02/23/24 13:14 Nucleated RBC % (auto) 0 % 02/23/24 13:14 Nucleated RBCs # 0.0 /100WBC 02/23/24 13:14 PT 15.30 SECONDS (12.1-14.9) H 02/23/24 13:14 INR 1.17 (0.8-1.2) 02/23/24 13:14 Sodium 139 mmol/L (136-145) 02/23/24 13:14 Potassium 3.8 mmol/L (3.5-5.1) 02/23/24 13:14 Chloride 103 mmol/L (98-107) 02/23/24 13:14 Carbon Dioxide 23 mmol/L (22-29) 02/23/24 13:14 Anion Gap 16.8 (5-19) 02/23/24 13:14 BUN 35 mg/dL (8-23) H 02/23/24 13:14 Creatinine 1.7 mg/dL (0.7-1.2) H 02/23/24 13:14 GFR Calculation Not Reportable 02/23/24 13:14 Glucose 103 mg/dL (65-115) 02/23/24 13:14 Calculated Osmolality 296 mOsm/kg (285-295) H 02/23/24 13:14 Lactic Acid 1.1 mmol/L (0.5-2.2) 02/23/24 13:49 Calcium 8.1 mg/dL (8.5-10.5) L 02/23/24 13:14 Total Bilirubin 0.7 mg/dL (0.15-1.2) 02/23/24 13:14 AST 90 U/L (0-40) H 02/23/24 13:14 ALT 76 U/L (0-41) H 02/23/24 13:14 Alkaline Phosphatase 83 U/L (40-130) 02/23/24 13:14 Troponin T Baseline 33 ng/L (0-15) H 02/23/24 13:14 Troponin T 120 Minute 27.15 ng/L (0-15) H 02/23/24 14:57 Delta Troponin T -5.85 ABS# (0-10) L 02/23/24 14:57 NT-Pro-B Natriuret Pep 632 pg/mL (0-450) H 02/23/24 13:14 Total Protein 6.3 g/dL (6.6-8.7) L 02/23/24 13:14 Albumin 3.8 g/dL (3.5-5.2) 02/23/24 13:14 Globulin 2.5 g/dL (1.3-4.6) 02/23/24 13:14 Urine Color Dark yellow (Yellow) 02/23/24 15:20 Urine Appearance Cloudy (CLEAR) A 02/23/24 15:20 Urine pH 5 (5-7) 02/23/24 15:20 Ur Specific [place] 1.020 (1.005-1.030) 02/23/24 15:20 Urine Protein 1+ (Negative) H 02/23/24 15:20 Urine Glucose (UA) Norm (Normal) 02/23/24 15:20 Urine Ketones Negative (Negative) 02/23/24 15:20 Urine Blood Trace (Negative) H 02/23/24 15:20 Urine Nitrate Negative (Negative) 02/23/24 15:20 Urine Bilirubin Neg (Negative) 02/23/24 15:20 Urine Urobilinogen Norm mg/dL (Negative) 02/23/24 15:20 Ur Leukocyte Esterase Negative (Negative) 02/23/24 15:20 Urine RBC 0-4 /hpf (0-2) H 02/23/24 15:20 Urine WBC 0-4 /hpf (0-5) H 02/23/24 15:20 Ur Squamous Epith Cells 0-4 /hpf (0-5) H 02/23/24 15:20 Amorphous Sediment Not Reportable 02/23/24 15:20 Urine Bacteria 1+ /hpf (NONE) H 02/23/24 15:20 Hyaline Casts 0-4 /lpf H 02/23/24 15:20 Fine Granular Casts 10-15 /lpf H 02/23/24 15:20 All radiology interpretation(s) finalized by discharge EKG Data EKG 1: I personally reviewed and interpreted this EKG as follows: EKG interpretation date: 02/23/24 EKG interpretation time: 13:22 Interpretation: nsr hr [address] or t wave abnormalities qrs 111 qtc 426 EKG 2: I personally reviewed and interpreted this EKG as follows: EKG interpretation date: 02/23/24 EKG interpretation time: 13:22 Interpretation: nsr hr [address] or t wave abnormalities qrs 111 qtc 426 Discharge Plan Discharge Patient Disposition: Home Clinical Impression: Weakness, Thrombocytopenia, Tick bite Condition: Stable Prescriptions: New doxycycline hyclate 100 mg tablet 100 mg PO BID 14 Days Qty: 28 0RF No Action aspirin [Adult Aspirin Regimen] 81 mg tablet,delayed release (DR/EC) 81 mg PO DAILY atorvastatin 40 mg tablet 40 mg PO DAILY losartan 25 mg tablet 25 mg PO DAILY carvedilol 3.125 mg tablet 3.125 mg PO BID Qty: 180 3RF Rx Instructions: must administer with a meal/food Discharge Orders: Discharge ED (Routine); Ordered 02/23/24 Ordered By: Fadia Egan Referrals: Daya Velez MD [Primary Care Provider] - 4-7 days Discharge Diet: Advance as tolerated Discharge Activity: Resume usual activity Patient Instructions: Tick Bite (ED), Thrombocytopenia (ED) Coding Level of Care Code ED Driller Hand for Angelia Lyman
[2024-02-23 13:49] LABS: Troponin(5th) Baseline 33 ng/L (0-15)
[2024-02-23] MEDS: sodium chloride 0.9% 1,000 ML 999 ML IV (14:05)
[2024-02-23 14:16] VITALS: BP 106/61; PULSE 70; RESP 25; O2SAT 90
[2024-02-23 14:27] LABS: Lactic Sepsis W/Reflex 1.1 mmol/L (0.5-2.2)
[2024-02-23 14:30] LABS: Slide Review Slide Review Perform
[2024-02-23 14:42] LABS: INR 1.17 (0.8-1.2)
[2024-02-23 14:50] LABS: Alanine Aminotransferase 76 U/L (0-41); Albumin Level 3.8 g/dL (3.5-5.2); Alkaline Phosphatase 83 U/L (40-130); Anion Gap 16.8 (5-19); Aspartate Amino Transferase 90 U/L (0-40); Blood Urea Nitrogen 35 mg/dL (8-23); Calcium 8.1 mg/dL (8.5-10.5); Carbon Dioxide 23 mmol/L (22-29); Chloride 103 mmol/L (98-107); Globulin 2.5 g/dL (1.3-4.6); Glucose 103 mg/dL (65-115); NT Pro B Type Natriuretic Pept 632 pg/mL (0-450); Osmolality Calculated 296 mOsm/kg (285-295); Potassium 3.8 mmol/L (3.5-5.1); Sodium 139 mmol/L (136-145); Total Bilirubin 0.7 mg/dL (0.15-1.2); Total Protein 6.3 g/dL (6.6-8.7)
--- NOTE | 2024-02-23 15:03 | ECG_ITS ---
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 Measurements Intervals [place] Rate: 79 P: 29 [place]: 174 QRS: -46 QRSD: 107 T: 63 QT: 390 QTc: 448 Interpretive Statements SINUS RHYTHM WITH OCCASIONAL VENTRICULAR PREMATURE COMPLEXES WITH OCCASIONAL SUPRAVENTRICULAR PREMATURE COMPLEXES LEFT AXIS DEVIATION [QRS AXIS < -30] SEPTAL MYOCARDIAL INFARCTION , PROBABLY OLD [40+ ms Q WAVE IN V1/V2] Compared to ECG 02/23/2024 13:22:07 Ventricular premature complex(es) now present Myocardial infarct finding still present Electronically Signed On 02-25-2024 13:56:28 CDT by Skyler Turpin M.D. [email or web address] [id number]
[2024-02-23 15:19] VITALS: BP 106/61; PULSE 83; RESP 20; O2SAT 93
[2024-02-23 15:27] LABS: Troponin 5 2HR 27.15 ng/L (0-15)
[2024-02-23 15:28] LABS: Troponin 5 2HR Delta -5.85 ABS# (0-10)
[2024-02-23 15:36] LABS: Bilirubin Urine Neg (Negative); Blood Urine Trace (Negative); Glucose Urine UA Norm (Normal); Ketones Urine Negative (Negative); Leukocyte Esterase Urine Negative (Negative); Nitrate Urine Negative (Negative); Protein Urine 1+ (Negative); Urine Appearance Cloudy (CLEAR); Urine Color Dark Yellow (Yellow); Urobilinogen Urine Norm (Negative); pH Urine 5 (5-7)
[2024-02-23 15:37] LABS: Add Urine Microscopic? YES; Hyaline Casts Urine 0-4 /lpf
[2024-02-23 15:38] LABS: Bacteria Urine 1+ /hpf; RBC Urine 0-4 /hpf (0-2); Squamous Epithelial Cell Urine 0-4 /hpf (0-5); WBC Urine 0-4 /hpf (0-5)
[2024-02-23] MEDS: doxycycline 100 mg Tablet PO (16:14)
[2024-02-23 16:20] VITALS: BP 101/54; PULSE 80; RESP 19; O2SAT 96
[2024-02-24 14:04] LABS: Lyme AB Screen <0.90 index
== END 2024-02-23 16:21 | disposition home or self-care (01) ==
PROVIDERS: Emergency Provider Emergency Medicine; PCP Family Medicine
DX: R53.1 Weakness (principal); D69.6 Thrombocytopenia, unspecified; W57.XXXA Bitten or stung by nonvenomous insect and other nonvenomous arthropods, initial encounter; Z79.82 Long term (current) use of aspirin; D72.819 Decreased white blood cell count, unspecified; E78.5 Hyperlipidemia, unspecified; I10 Essential (primary) hypertension
CPT/HCPCS: 36415; 70450; 71045; 80053; 81001; 83605; 83880; 84484; 85025; 85610; 86618; 86666; 86757; 93005; 96360; 96361; 99285; J7030

== ENCOUNTER → 2024-03-02 11:15 | Outpatient (BNVA) | payer MEDICARE, SELFPAY | PROVIDERS: PCP Family Medicine; Visit Provider Internal Medicine Cardiovascular Disease | DX: R07.9 Chest pain, unspecified (principal); Z79.01 Long term (current) use of anticoagulants; R06.02 Shortness of breath; I45.10 Unspecified right bundle-branch block | CPT/HCPCS: 36415; 80048; 85025; 93005 ==

== ENCOUNTER 2024-06-05 20:00 | Outpatient (CLI) | payer MEDICARE, SELFPAY | END 2024-06-05 20:01 | disposition home or self-care (01) | LOC: SLEEP 20:18 | PROVIDERS: PCP Family Medicine; Visit Provider Family Medicine | DX: G47.33 Obstructive sleep apnea (adult) (pediatric) (principal); G47.36 Sleep related hypoventilation in conditions classified elsewhere | CPT/HCPCS: 95810 ==

== ENCOUNTER → 2024-06-06 08:50 | Outpatient (BNVA) | payer MEDICARE, SELFPAY | PROVIDERS: PCP Family Medicine; Visit Provider Nurse Practitioner Family | DX: Z45.010 Encounter for checking and testing of cardiac pacemaker pulse generator [battery] (principal); Z86.79 Personal history of other diseases of the circulatory system; I10 Essential (primary) hypertension; Z86.73 Personal history of transient ischemic attack (TIA), and cerebral infarction without residual deficits; G47.33 Obstructive sleep apnea (adult) (pediatric); M17.12 Unilateral primary osteoarthritis, left knee; E78.5 Hyperlipidemia, unspecified; Z87.891 Personal history of nicotine dependence; Z79.01 Long term (current) use of anticoagulants | CPT/HCPCS: 99214 ==

== ENCOUNTER 2024-08-22 10:07 | Emergency (ER) | payer MEDICARE, SELFPAY ==
[2024-08-22 10:14] VITALS: BP 136/80; PULSE 95; RESP 22; TEMP 36.6; O2SAT 96; BMI 30.4
--- NOTE | 2024-08-22 10:19 | ECG_ITS ---
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 Measurements Intervals [place] Rate: 102 P: 0 NE: 0 QRS: -73 QRSD: 100 T: 72 QT: 326 QTc: 425 Interpretive Statements ATRIAL FIBRILLATION WITH RAPID VENTRICULAR RESPONSE LEFT AXIS DEVIATION [QRS AXIS < -30] INCOMPLETE RIGHT BUNDLE BRANCH BLOCK [90+ ms QRS DURATION, TERMINAL R IN V1/V2, 40+ ms S IN I/aVL/V4/V5/V6] ANTEROSEPTAL MYOCARDIAL INFARCTION , OF INDETERMINATE AGE [40+ ms Q WAVE IN V1-V4] Compared to ECG 03/02/2024 11:19:18 Sinus rhythm no longer present Ventricular premature complex(es) no longer present Myocardial infarct finding still present Electronically Signed On 08-22-2024 15:09:53 MACHINE FEED OPERATOR by Julio Benitez M.D. [id number]
--- NOTE | 2024-08-22 10:19 | XRR_ITS ---
PROCEDURE INFORMATION: Exam: XR Chest Exam date and time: 08/22/2024 10:22 AM Age: 84 years old Clinical indication: Cough and dyspnea; Additional info: Dyspnea/cough TECHNIQUE: Imaging protocol: Radiologic exam of the chest. Views: 1 view. COMPARISON: CR XR chest 1V portable [id number] 02/23/2024 1:22 PM FINDINGS: Lungs: Right medial basilar opacities likely at least partially secondary to scar versus atelectasis without change. Pleural spaces: No pleural effusion or pneumothorax. Heart/Mediastinum: Prior AVR. Vasculature: Tortuous thoracic aorta. Diaphragm: Elevated right hemidiaphragm. Bones/joints: No significant pathology. XR/XR chest 1V portable [id number] IMPRESSION: No acute pathology or significant interval change. Continued elevation of the right hemidiaphragm with nonspecific right basilar changes likely at least partially secondary to scarring or atelectasis. CT could be performed for assessment of possible obscured pathology if clinically warranted.
[2024-08-22 10:22] VITALS: BP 136/80; PULSE 129; RESP 18; O2SAT 94
[2024-08-22 10:41] LABS: Basophils # 0.1 10^3/uL (0.0-0.1); Basophils % 0.6 %; Eosinophils # 0.9 10^3/uL (0.0-0.8); Hematocrit 43.7 % (37-53); Lymphocytes # 1.5 10^3/uL (0.8-4.8); Lymphocytes % 17.6 %; Mean Corpuscular HGB Conc 32.7 g/dL (30-55); Mean Corpuscular Hemoglobin 30.3 pg (27-33); Mean Corpuscular Volume 92.6 fl (82-101); Mean Platelet Volume 10.1 fL (7.4-10.4); Monocytes # 0.5 10^3/uL (0.2-0.9); Monocytes % 6.5 %; Neutrophils % 63.9 %; Nucleated Red Blood Cells % 0 %; Platelet Count 219 10^3/cmm (157-399); Red Blood Count 4.72 10^6/uL (3.85-5.65); Red Cell Distribution Width 14.6 % (12.1-15.1); White Blood Count 8.29 10^3/uL (3.29-11.43)
[2024-08-22 11:01] LABS: Alanine Aminotransferase 64 U/L (0-41); Alkaline Phosphatase 66 U/L (40-130); Aspartate Amino Transferase 47 U/L (0-40); Blood Urea Nitrogen 21 mg/dL (8-23); Calcium 9.7 mg/dL (8.5-10.5); Carbon Dioxide 24 mmol/L (22-29); Chloride 105 mmol/L (98-107); Creatinine Clr Calc Pharmacy 47.9164; Globulin 3.4 g/dL (1.3-4.6); Glucose 127 mg/dL (65-115); Osmolality Calculated 295 mOsm/kg (285-295); Sodium 140 mmol/L (136-145); Thyroid Stimulating Hormone 1.45 uIU/mL (0.27-4.20); Total Bilirubin 0.7 mg/dL (0.15-1.2); Total Protein 7.4 g/dL (6.6-8.7)
--- NOTE | 2024-08-22 11:04 | ECG_ITS ---
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 Measurements Intervals [place] Rate: 85 P: 0 [place]: 0 QRS: -45 QRSD: 101 T: 73 QT: 348 QTc: 415 Interpretive Statements ATRIAL FIBRILLATION WITH ABERRANT CONDUCTION OR VENTRICULAR PREMATURE COMPLEXES LEFT AXIS DEVIATION [QRS AXIS < -30] INCOMPLETE RIGHT BUNDLE BRANCH BLOCK [90+ ms QRS DURATION, TERMINAL R IN V1/V2, 40+ ms S IN I/aVL/V4/V5/V6] ANTEROSEPTAL MYOCARDIAL INFARCTION , OF INDETERMINATE AGE [40+ ms Q WAVE IN V1-V4] Compared to ECG 08/22/2024 10:13:15 Ventricular premature complex(es) now present Aberrant conduction of supraventricular beat(s) now present Myocardial infarct finding still present Electronically Signed On 08-22-2024 15:09:40 FINANCIAL RETIREMENT PLAN SPECIALIST by Julio Benitez M.D. [id number]
--- NOTE | 2024-08-22 11:05 | ED_ITS ---
HPI - Arrhythmia/Palpitations 2 General: Chief Complaint: Arrhythmia/Palpitations Stated Complaint: afib(sent by ) Time Seen by Provider: 08/22/24 10:16 History of Present Illness: 84-year-old male presents to the emergen cy room concerned about atrial fibrillation. In the past he had been noted to have an irregular rhythm by the rn clinical documentation specialist but had not been started on anything for it per his report. He recently had a bladder infection was started on nitrofurantoin tamsulosin 1. He is describing having fever sweats and chills he related to his medications we stopped the tamsulosin he is continue to take the nitrofurantoin. The urinalysis was done at [facility] we do not have a copy of the culture at this time. When he was seen at the [facility] clinic today in [place] they thought he had A-fib with RVR and was directed to the emergency room he is intermittently having rates up to 125 time ICU made when the EKG was done and it was closer to 100. Related Data Home Medications Medication Instructions Recorded Confirmed aspirin 81 mg tablet,delayed 81 mg PO DAILY 07/11/20 08/22/24 release (Adult Aspirin Regimen) atorvastatin 40 mg tablet 40 mg PO DAILY 07/11/20 08/22/24 losartan 25 mg tablet 25 mg PO DAILY 12/09/23 08/22/24 alfuzosin 10 mg tablet,extended 10 mg PO DAILY 08/22/24 08/22/24 release 24 hr nitrofurantoin 100 mg PO BID 08/22/24 08/22/24 monohydrate/macrocrystals 100 mg capsule tamsulosin 0.4 mg capsule 0.4 mg PO DAILY 08/22/24 08/22/24 Previous Rx's Medication Instructions Recorded metoprolol succinate 25 mg 25 mg PO DAILY #30 tabs 08/22/24 tablet,extended release 24 hr (Toprol XL) Allergies Allergy/AdvReac Type Severity Reaction Status Date / Time amoxicillin Allergy itching,staci Verified 06/06/24 09:13 lucinations Penicillins Allergy itching, Verified 06/06/24 09:13 hallucinations Review of Systems 2 Const: Denies: fever(s) or chills Card: Denies: chest pain Resp: Denies: dyspnea GI: Denies: abdominal pain : Denies: dysuria, urinary frequency or urinary urgency Musc: Denies: neck pain or back pain Skin/Breast: Denies: rash PFSH ED 2 PFSH: Medical History Hx of hyperlipidemia Family hx of colon cancer Hx of cardiac murmur Hx of chronic arthritis Urinary frequency BPH loc w urin obs/LUTS Recurrent UTI Lower urinary tract symptoms (LUTS) History of hypertension Surgical History Hx of appendectomy Hx of colonoscopy Hx of nasal sinusotomy Hx of tonsillectomy Hx of hernia repair Hx of aortic valve replacement Family History Father , AT AGE 84 PROSTATE CANCER Cancer Lung disease Stroke Sister Cancer BREAST Lung disease Mother , at age 62 Aortic aneurysm CAD (coronary artery disease) Denies family history of Diabetes Clotting disorder Dementia Chronic kidney disease (CKD) Suicide Anesthesia complication Bleeding disorder Social History Smoking and tobacco/nicotine status: never used tobacco/nicotine Alcohol intake: former Marital status: Current occupational status: retired Physical Exam 2 Const: COMMON NORMALS: no acute distress GENERAL APPEARANCE: cooperative and comfortable ORIENTATION/CONSCIOUSNESS: Yes awake, Yes oriented to person, Yes oriented to place and Yes oriented to time HENMT: COMMON NORMALS: normocephalic, atraumatic and hearing grossly normal bilaterally HEAD & SCALP: normocephalic and atraumatic Resp: COMMON NORMALS: normal respiratory effort, No retractions, No use of accessory muscles and clear to auscultation bilaterally AUSCULTATION: clear to auscultation bilaterally Cardio: COMMON NORMALS: No murmurs present (Cardio) RATE: tachycardic R HYTHM: abnormal rhythm irregularly irregular GI: COMMON NORMALS: Soft to palpation and No hepatosplenomegaly present A USCULTATION: Yes normoactive bowel sounds PALPATION: Yes Soft to palpation, No Tenderness to palpation present (GI), No Guarding due to palpation present (GI) and Yes No hepatosplenomegaly present Extremity: COMMON NORMALS: normal to inspection, capillary refill normal, no clubbing, cyanosis or edema, no calf tenderness and no pedal edema Neuro: SENSORIUM/ORIENTATION: Yes oriented to person, Yes oriented to place and Yes oriented to time Skin: COMMON NORMALS: no rashes or lesions noted GENERAL SKIN EXAM: no rashes or lesions noted Course 2 Vital Signs: Vital signs: Vital Signs Temperature 97.9 F 08/22/24 10:14 Pulse Rate 89 08/22/24 12:35 Respiratory Rate 16 08/22/24 12:35 Blood Pressure 107/67 08/22/24 12:35 Pulse Oximetry 95 08/22/24 12:35 Oxygen Delivery Me thod Room Air 08/22/24 12:35 MDM - Arrhythmia/Palpitations Medical Decision Making Patient is in A-fib but rate is not significantly out of control. He previously was on carvedilol but that had been stopped. Will restart him on metoprolol given shorting metoprolol now start Toprol-XL 25 mg daily in the morning. Follow-up with his primary care doctor within the week. Return if he has further problems. Set up for 72-hour Holter monitor for breakthrough rapid response episodes. UA was repeated shows mostly was cleared and encouraged him to complete the course of antibiotic we did try to find a culture report but evidently no culture was done. Medical Records I reviewed the patient's medical records. Lab Data I reviewed the patient's lab results. 08/22/24 10:19 08/22/24 10:19 Radiology Impressions Chest X-Ray 08/22/24 10:19 IMPRESSION: No acute pathology or significant interval change. Continued elevation of the right hemidiaphragm with nonspecific right basilar changes likely at least partially secondary to scarring or atelectasis. CT could be performed for assessment of possible obscured pathology if clinically warranted. Laboratory Results WBC 8.29 10^3/uL (3.29-11.43) 08/22/24 10:19 RBC 4.72 10^6/uL (3.85-5.65) 08/22/24 10:19 Hgb 14.30 g/dL (11.27-16.99) 08/22/24 10:19 Hct 43.7 % (37-53) 08/22/24 10:19 MCV 92.6 fl (82-101) 08/22/24 10:19 MCH 30.3 pg (27-33) 08/22/24 10:19 MCHC 32.7 g/dL (30-55) 08/22/24 10:19 RDW 14.6 % (12.1-15.1) 08/22/24 10:19 Plt Count 219 10^3/cmm (157-399) 08/22/24 10:19 MPV 10.1 fL (7.4-10.4) 08/22/24 10:19 Neut % (Auto) 63.9 % 08/22/24 10:19 Lymph % (Auto) 17.6 % 08/22/24 10:19 [place] % (Auto) 6.5 % 08/22/24 10:19 Eos % (Auto) 11.0 % 08/22/24 10:19 Baso % (Auto) 0.6 % 08/22/24 10:19 Neut # (Auto) 5.30 10^3/uL (1.8-7.7) 08/22/24 10:19 Lymph # (Auto) 1.5 10^3/uL (0.8-4.8) 08/22/24 10:19 [place] # (Auto) 0.5 10^3/uL (0.2-0.9) 08/22/24 10:19 Eos # (Auto) 0.9 10^3/uL (0.0-0.8) H 08/22/24 10:19 Baso # (Auto) 0.1 10^3/uL (0.0-0.1) 08/22/24 10:19 Nucleated RBC % (auto) 0 % 08/22/24 10:19 Nucleated RBCs # 0.0 /100WBC 08/22/24 10:19 Sodium 140 mmol/L (136-145) 08/22/24 10:19 Potassium 4.0 mmol/L (3.5-5.1) 08/22/24 10:19 Chloride 105 mmol/L (98-107) 08/22/24 10:19 Carbon Dioxide 24 mmol/L (22-29) 08/22/24 10:19 Anion Gap 15.0 (5-19) 08/22/24 10:19 BUN 21 mg/dL (8-23) 08/22/24 10:19 Creatinine 1.3 mg/dL (0.7-1.2) H 08/22/24 10:19 GFR Calculation Not Reportable 08/22/24 10:19 Glucose 127 mg/dL (65-115) H 08/22/24 10:19 Calculated Osmolality 295 mOsm/kg (285-295) 08/22/24 10:19 Calcium 9.7 mg/dL (8.5-10.5) 08/22/24 10:19 Total Bilirubin 0.7 mg/dL (0.15-1.2) 08/22/24 10:19 AST 47 U/L (0-40) H 08/22/24 10:19 ALT 64 U/L (0-41) H 08/22/24 10:19 Alkaline Phosphatase 66 U/L (40-130) 08/22/24 10:19 Total Protein 7.4 g/dL (6.6-8.7) 08/22/24 10:19 Albumin 4.0 g/dL (3.5-5.2) 08/22/24 10:19 Globulin 3.4 g/dL (1.3-4.6) 08/22/24 10:19 TSH 1.45 uIU/mL (0.27-4.20) 08/22/24 10:19 Urine Color Yellow (Yellow) 08/22/24 11:36 Urine Appearance Clear (CLEAR) 08/22/24 11:36 Urine pH 5.5 (5-7) 08/22/24 11:36 Ur Specific [place] 1.006 (1.005-1.030) 08/22/24 11:36 Urine Protein Trace (Negative) A 08/22/24 11:36 Urine Glucose (UA) Negative (Normal) 08/22/24 11:36 Urine Ketones Negative (Negative) 08/22/24 11:36 Urine Blood Negative (Negative) 08/22/24 11:36 Urine Nitrate Negative (Negative) 08/22/24 11:36 Urine Bilirubin Negative (Negative) 08/22/24 11:36 Urine Urobilinogen 0.2 mg/dL (Negative) 08/22/24 11:36 Ur Leukocyte Esterase Trace (Negative) A 08/22/24 11:36 Urine RBC 0-2 /hpf (0-2) 08/22/24 11:36 Urine WBC 0-5 /hpf (0-5) 08/22/24 11:36 Ur Squamous Epith Cells 0-5 /hpf (0-5) 08/22/24 11:36 Amorphous Sediment Not Reportable 08/22/24 11:36 Urine Bacteria None seen /hpf (NONE) 08/22/24 11:36 Hyaline Casts 0-4 /lpf H 08/22/24 11:36 All radiology interpretation(s) finalized by discharge Discharge Plan Discharge Patient Disposition: Home Clinical Impression: Atrial fibrillation Condition: Stable Prescriptions: New metoprolol succinate [Toprol XL] 25 mg tablet extended release 24 hr 25 mg PO DAILY Qty: 30 0RF No Action aspirin [Adult Aspirin Regimen] 81 mg tablet,delayed release (DR/EC) 81 mg PO DAILY atorvastatin 40 mg tablet 40 mg PO DAILY losartan 25 mg tablet 25 mg PO DAILY tamsulosin 0.4 mg capsule 0.4 mg PO DAILY alfuzosin 10 mg tablet extended release 24 hr 10 mg PO DAILY nitrofurantoin monohyd/m-cryst 100 mg capsule 100 mg PO BID Discharge Orders: Discharge ED (Routine); Ordered 08/22/24 Ordered By: Hunter Krueger Referrals: Daya Velez MD [Primary Care Provider] - Discharge Diet: Usual diet Discharge Activity: Increase activity as tolerated Patient Instructions: Opioid Safety, Pain Management Activity Restrictions/Additional Instructions: Thank you for choosing [facility] for your healthcare needs today. It is very important that you follow up as instructed or that you return to the Emergency Department should you have concerns or if your condition changes or worsens in any way. You are seen in the emergency room for concern of rapid heart rate. You were in atrial fibrillation your rate is well-controlled at this point. You are given dose of metoprolol short acting here recommend you start metoprolol long-acting this evening 25 mg once daily. Will place you on a 48-hour Holter monitor to evaluate for breakthrough arrhythmias follow-up with your rn clinical documentation specialist. If you change in symptoms return. Your repeat urinalysis did not show any signs of bladder infection completed current course of antibiotics that you are taking. Coding Level of Care Code ED It Consultant for Angelia Lyman
[2024-08-22 11:59] LABS: Bilirubin Urine Negative (Negative); Blood Urine Negative (Negative); Glucose Urine UA Negative (Normal); Ketones Urine Negative (Negative); Leukocyte Esterase Urine Trace (Negative); Nitrate Urine Negative (Negative); Protein Urine Trace (Negative); Specific Gravity, Urine 1.006 (1.005-1.030); Urine Appearance Clear (CLEAR); Urine Color Yellow (Yellow); Urobilinogen Urine 0.2 mg/dL (Negative); pH Urine 5.5 (5-7)
[2024-08-22 12:01] LABS: Add Urine Microscopic? YES; Bacteria Urine None Seen /hpf; Hyaline Casts Urine 0-4 /lpf; RBC Urine 0-2 /hpf (0-2); Squamous Epithelial Cell Urine 0-5 /hpf (0-5); WBC Urine 0-5 /hpf (0-5)
[2024-08-22 12:08] LABS: Add Urine Culture? No
[2024-08-22] MEDS: metoprolol tartrate 25 mg Tablet PO (12:32)
[2024-08-22 12:35] VITALS: BP 107/67; PULSE 89; RESP 16; O2SAT 95
[2024-08-22 12:55] VITALS: BP 104/63; PULSE 91; RESP 16; O2SAT 94
--- NOTE | 2024-08-22 13:13 | DCPLANNER ---
Message sent to Cardiology for follow up- Holter monior needed
== END 2024-08-22 12:50 | disposition home or self-care (01) ==
PROVIDERS: Emergency Provider Family Medicine; PCP Family Medicine
DX: I48.91 Unspecified atrial fibrillation (principal); Z79.82 Long term (current) use of aspirin; E78.5 Hyperlipidemia, unspecified; I10 Essential (primary) hypertension
CPT/HCPCS: 71045; 80053; 81001; 84443; 85025; 93005; 99285

== ENCOUNTER → 2024-09-04 09:51 | Outpatient (BNVA) | payer MEDICARE, SELFPAY | PROVIDERS: PCP Family Medicine | DX: I49.8 Other specified cardiac arrhythmias (principal); I49.1 Atrial premature depolarization; I49.3 Ventricular premature depolarization; I47.10 Supraventricular tachycardia, unspecified | CPT/HCPCS: 93229; 93242 ==

== ENCOUNTER → 2024-11-02 09:51 | Outpatient (BNVA) | payer MEDICARE, SELFPAY | PROVIDERS: PCP Family Medicine; Visit Provider Nurse Practitioner Family | DX: I10 Essential (primary) hypertension (principal); Z95.2 Presence of prosthetic heart valve; I47.29 Other ventricular tachycardia; G47.33 Obstructive sleep apnea (adult) (pediatric); I48.91 Unspecified atrial fibrillation; I49.3 Ventricular premature depolarization; R09.89 Other specified symptoms and signs involving the circulatory and respiratory systems | CPT/HCPCS: 99214 ==

== ENCOUNTER 2024-11-13 20:00 | Outpatient (CLI) | payer MEDICARE, SELFPAY | END 2024-11-13 20:01 | disposition home or self-care (01) | LOC: SLEEP 11-14 01:31 | PROVIDERS: PCP Family Medicine; Visit Provider Family Medicine | DX: G47.33 Obstructive sleep apnea (adult) (pediatric) (principal); I48.91 Unspecified atrial fibrillation; I49.3 Ventricular premature depolarization | CPT/HCPCS: 95811 ==

== ENCOUNTER 2024-11-29 10:33 | Outpatient (CLI) | payer MEDICARE, SELFPAY ==
--- NOTE | 2024-11-29 10:45 | USCV_ITS ---
TellyMagdy Age: 84 Gender: M : 1940 Exam Date: 11/29/2024 10:44 Ordering Phys: Hoa Correa Technologist: JENNIFER [place] [facility] [place]: left carotid bruit Risk Factors: Previous Vascular Surgery: Right Brachial BP: / Left Brachial BP: / Right Left Velocity (cm/s) Spectral Plaque Velocity (cm/s) Spectral Plaque Syst/Diast Broadening Syst/Diast Broadening 52.00/ 4.60 Prox CCA 62.90 / 15.90 90.80/ 10.80 Mid CCA 53.20 / 12.00 53.60/ 11.80 Distal CCA 48.10 / 14.00 19.70/ 7.00 Prox ICA 51.90 / 6.30 36.00/ 14.10 Mid ICA 57.10 / 21.10 60.60/ 18.70 Distal ICA 45.40 / 20.00 56.70 ECA 111.50 0.40 ICA/CCA 1.10 Antegrade Vertebral Antegrade 28.50/ 7.90 cm/s 68.50/ 15.70 cm/s Tri Subclavian Tri 64.80 55.90 CONCLUSIONS Right ICA stenosis <50%. Mild atheromatous plaque right carotid bulb/ICA. Left ICA stenosis <50%. Mild atheromatous plaque left carotid bulb/ICA. Intimal thickening in the common carotid arteries and internal carotid arteries bilaterally. Normal antegrade Doppler flow noted in the right vertebral artery. Normal antegrade Doppler flow noted in the left vertebral artery. Bhupinder Lowry MD (Electronically Signed) Final Date: 29 November 2024 12:49 S
== END 2024-11-29 10:34 | disposition home or self-care (01) ==
LOC: RAD 10:37
PROVIDERS: PCP Family Medicine; Visit Provider Nurse Practitioner Family
DX: R09.89 Other specified symptoms and signs involving the circulatory and respiratory systems (principal); I65.23 Occlusion and stenosis of bilateral carotid arteries
CPT/HCPCS: 93880

== ENCOUNTER → 2025-03-13 12:20 | Outpatient (BNVA) | payer MEDICARE, SELFPAY | PROVIDERS: PCP Family Medicine; Visit Provider Internal Medicine Cardiovascular Disease | DX: I48.91 Unspecified atrial fibrillation (principal); Z79.82 Long term (current) use of aspirin; I10 Essential (primary) hypertension; M25.569 Pain in unspecified knee; Z95.2 Presence of prosthetic heart valve | CPT/HCPCS: 99214 ==

== ENCOUNTER 2025-05-30 15:28 | Emergency (ER) | payer MEDICARE, SELFPAY ==
--- OUTSIDE RECORDS SUMMARY | 2024-09-15 03:40 | XMS_ITS ---
Author Organization [facility] Address [address] [place] [address] Care Team Providers Care Audio Visual Secretary Name Role Phone Daya Velez Primary Care Provider Emilee Amaya REASON FOR VISIT 4w f/u ua and pvr, jennyfer Encounters Encounter Location Date Provider Diagnosis [facility] [address] [place] [address] 09/15/2024 Emilee Ireland Plan Of Treatment Next Appt Details Provider Name:Emilee Chris, 06/19/2025 01:00:00 PM, [address], [place], [address], Provider Name:Emilee Chris, 09/24/2025 08:30:00 AM, [address], [place], [address], Progress Notes * Magdy RAMIREZDOB:1940 ([age] yo M)Acc No.[id number]:09/15/2024 Progress Notes Patient: Magdy Quispe Provider: MARLO Zhou :1940 A ge:84 Y S ex:Male Date:09/15/2024 Address:[address] [place], [place] Pcp:Daya Velez Subjective: * Chief Complaints: * 4 w f/u ua and pvr, jennyfer * Electronic signature of MARLO Lovell on 05/30/2025 at 01:51 PM CDT Sign off status: Pending * Provider: MARLO Zhou Date: 0 09/15/2024 Generated for Nicole preston/Angelita/Sabiha on: 0 05/30/2025 01:51 PM CDT
--- OUTSIDE RECORDS SUMMARY | 2025-05-29 03:00 | XMS_ITS ---
Author Organization [facility] Address [address] [place] [address] Care Team Providers Care Sticker Hand Name Role Phone Daya Velez Primary Care Provider Emilee Amaya Allergies Allergen (clinical drug ingredient) Drug/Non Drug Allergy documented on EMR Reaction Allergy Type Onset Date Status Penicillin Unknown Drug Allergy Active Results Component Value Reference Range Notes UA Without Micro-[place], [place] - [id number] Reviewed date:05/29/2025 08:21:11 AM Interpretation: Performing Lab: Notes/Report: Glucose 0 Bili 0 Ketones 0 Sp [place] 1.020 Blood 3+ pH 6.0 Protein 2+ Urobili 0 Nitrites 0 Leukocytes 3+ Culture Urine [id number] Reviewed date:05/30/2025 01:04:35 PM Interpretation: Performing Lab: Notes/Report: Culture Urine [facility] Culture Urine t: Culture Urine Culture Urine Accessio [id number] Culture Urine n: Culture Urine Microbiology Culture Urine PROCEDURE: Culture U rine [O1] Culture Urine SOURCE: Urine BODY SITE: Culture Urine COLLECTED DATE/TIME: 05/29/2025 08:55 CDT RECEIVED DATE/TIME: 05/29/2025 17:25 CDT Culture Urine START DATE/TIME: 05/08 17:25 CDT FREE TEXT SOURCE: Culture Urine PRELIMINARY REPORT Culture Urine Preliminary Report [] Culture Urine Verified Date/Time: 05/30/2025 06:35 CDT Culture Urine Very young growth.Fu rther incubation is required for work-up Culture Urine Order Comments Culture Urine O1: Culture Urine (C ulture Urine [id number]) Culture Urine Diagnosis Descriptio n: Unspecified abnormal findings in urine REASON FOR VISIT Patient is having urinary frequency, gets up every 30 min to urinate Medications Medication SIG (Take, Route, Frequency, Duration) Notes Start Date End Date Status Atorvastatin Calcium 40 MG Tablet 1 tablet Orally Once a day Active Losartan Potassium 25 MG Tablet 1 tablet Orally Once a day Active Alfuzosin HCl ER 10 MG Tablet Extended Release 24 Hour 1 tablet immediately after the same meal Orally Once a day; Duration: 90 days 09/21/2024 09/16/2025 Active Aspirin 81 MG Tablet Chewable 1 tablet Orally Once a day Active Nitrofurantoin Monohyd Macro 100 MG Capsule 1 capsule with food Orally every 12 hrs; Duration: 7 days 05/29/2025 06/05/2025 Active Social History Tobacco Use: Social History Observation Description Date Details (start date - stop date) Never Smoker NA - NA Social History Tobacco Use: Social Info Question Answer Notes Tobacco Control (Standard) Tobacco use: Nonsmoker Vital Signs Temperature 98.6 degrees Fahrenheit 05/29/20 25 Blood pressure systolic 130 mm Hg 05/29/20 25 Blood pressure diastolic 85 mm Hg 025 Heart Rate 72 /min 05/29/2025 Height 68 in 05/29/2025 Weight 214.0 lbs 05/29/2025 BMI 32.54 kg/m2 05/29/2025 Height-cm 172.72 cm 05/29/2025 Weight-kg 97.07 kg 05/29/2025 Encounters Encounter Location Date Provider Diagnosis [facility] [address] [place] [address] Dr Del Toro [address] [place] [phone] 05/29/2025 Emilee Ireland Urinary frequency R35.0 ; Recurrent UTI N39.0 ; BPH loc w urin obs/LUTS N40.1 and Unspecified abnormal findings in urine R82.90 Assessments Encounter Date Diagnosis (ICD Code) Assessment Notes Treatment Notes Treatment Clinical Notes Section Notes 05/29/2025 Urinary frequency (ICD-10 - R35.0) 05/29/2025 Recurrent UTI (ICD-10 - N39.0) 05/29/2025 BPH loc w urin obs/LUTS (ICD-10 - N40.1) 05/29/2025 Unspecified abnormal findings in urine (ICD-10 - R82.90) 05/29/2025 Other PATIENT WILL START NITROFURANTOIN 100MG BID FOR 7 DAYS CULTURE URINE PATIENT WILL CONTINUE TO MONITOR FOR WORSENING SYMPTOMS - FEVER, CHILLS, LACK OF URINATION, HEMATURIA FOLLOW UP IN 3 WEEKS, UA, PVR Plan Of Treatment Medication Medication Name Sig Start Date Stop Date Notes Nitrofurantoin Monohyd Macro 100 MG Capsule 1 capsule with food Orally every 12 hrs; Duration: 7 days 05/29/2025 06/05/2025 Treatment Notes Assessment Notes Other PATIENT WILL START NITROFURANTOIN 100MG BID FOR 7 DAYS CULTURE URINE PATIENT WILL CONTINUE TO MONITOR FOR WORSENING SYMPTOMS - FEVER, CHILLS, LACK OF URINATION, HEMATURIA FOLLOW UP IN 3 WEEKS, UA, PVR Next Appt Details Follow Up: 3 Weeks, Reason: see other Provider Name:Emilee Chris, 06/19/2025 01:00:00 PM, [address] [facility] [address], [place], [address], Provider Name:Emilee Chris, 09/24/2025 08:30:00 AM, [address] [facility] [address], [place], [address], History and Physical Notes * Examination Category Sub-Category Detail Notes Category Not es General Examination GENERAL APPEARANCE: pleasant, in n o acute distress HEAD: normocephalic LUNGS: normal respiratory e ffort. PSYCH: alert, oriented, aff ect normal. Progress Notes * Teresa RAMIREZDOB:1940 ([age] yo M)Acc No.[id number]:05/29/2025 Progress Notes Patient: Teresa Quispe Provider: MARLO Zhou :1940 A ge:85 Y S ex:Male Date:05/29/2025 Address:[address] [place], [place] [id number] Pcp:Daya Velez Check In:07:55 AM CSTCheck O ut:08:47 AM INTERNAL CONTROL SPECIALIST Subjective: * Chief Complaints: * P atient is having urinary frequency, gets up every 30 min to urinate * HPI: P rovider Note: 85-year-old male presents to the clinic for follow-up Last seen March 2025 He is here for acute visit stating that he is having urinary frequency, getting up every 30 minutes for urination He does have history of UTI Has had complaint of slow frequent urination, issues emptying, admitted to having better urination on alfuzosin 10 mg BPH chronic but stable at last visit he came down to help a family member with woodwork, Later that evening, he started having freq. Next day, he helped a neighbor with a tree that fell, and cut it up. Same situation occurred, he started having frequency. He is now having some burning in his urethra. No fever, no chills, no flank pain, no blood in his urine that he can see. Patient UTI and symptoms are consistent with UTI. * ROS: G eneral - Multi System: Constitutional D enies, fever, chills,. * Medical History: No Medical History Documented Medical History Verified * Surgical History: Heart Valve Replacement appendectomy Testicular surgery Polyps on Colon Surgical History verified. * Hospitalization/Major Diagno stic Procedure: See surgeries high heart rate 09/02 Hospitalization Verified. * Family History: S ibpatricia: alive, Sister- Breast Cancer. F amily History Verified.. * Social History: T obacco Use: T obacco Control (Standard) T obacco use: N onsmoker S ocial History Verified. * Medications: T akingAlfuzosin HCl ER 10 MG Tablet Extended Release 24 Hour 1 tablet immediately after the same meal Orally Once a day , stop date 6Aspirin 81 MG Tablet Chewable 1 tablet Orally Once a day Atorvastatin Calcium 40 MG Tablet 1 tablet Orally Once a day Losartan Potassium 25 MG Tablet 1 tablet Orally Once a day Medication List reviewed and reconciled with the patientTaking Alfuzosin HCl ER 10 MG Tablet Extended Release 24 Hour 1 tablet immediately after the same meal Orally Once a day , stop date 09/16/2025Taking Aspirin 81 MG Tablet Chewable 1 tablet Orally Once a day Taking Atorvastatin Calcium 40 MG Tablet 1 tablet Orally Once a day Taking Losartan Potassium 25 MG Tablet 1 tablet Orally Once a day Medication List reviewed and reconciled with the patient * Allergies: P enicillinyesAllergies Verified. Objective: * Vitals: H t: 68 in, Wt:214.0lbs, Wt-k.07 kg, BMI:32.54Index, Temp:98.6F, BP:130/85mm Hg, HR:72/min, Ht-cm: 172.72 cm. * P ast Orders: Lab:UA Without Micro-Auto, Hailee bustillo - [id number] * Collection Date 05/29/2025 03/22/2025 09/21/2024 Order Date 05/29/2025 03/22/2025 09/21/2024 Glucose 0 0 0 Bili 0 0 0 Ketones 0 0 0 Sp [place] 1.020 1.015 1.015 Blood 3+ 0 0 pH 6.0 6.0 6.0 Protein 2+ 0 0 Urobili 0 0 0 Nitrites 0 0 0 Leukocytes 3+ 0 0 * Examination: G eneral Examination: GENERAL APPEARANCE: p leasant, in no acute distress. HEAD: n ormocephalic. LUNGS: n ormal respiratory effort. PSYCH: a lert, oriented, affect normal.. ? Assessment: * Assessment: 1. U rinary frequency - R35.0 (Primary) 2 . R ecurrent UTI - N39.0 ? 3 . B PH loc w urin obs/LUTS - N40.1 4 . U nspecified abnormal findings in urine - R82.90 Plan: * Treatment: Value Reference Range G lucose 0 * B mike 0 * K etones 0 * S p [place] 1.020 * B lood 3+ * p H 6.0 * P rotein 2+ * U robili 0 * N itrites 0 * L eukocytes 3+ 2.?Recurrent UTI? Start Nitrofurantoin Monohyd Macro Capsule, 100 MG, 1 capsule with food, Orally, every 12 hrs, 7 days, 14 Capsule, Start Date: 05/29/2025, Stop Date: 06/05/2025, Refills 0.??3.?Unspecified abnormal findings in urine?LAB: Culture Urine 19305* Value Reference Range C ulture Urine [facility] - * This lab was reviewed by Devin Ireland on 05/30/2025 at 13:04 PM CDT 4.?Others? Notes: PATIENT WILL START NITROFURANTOIN 100MG BID FOR 7 DAYS? CULTURE URINE? PATIENT WILL CONTINUE TO MONITOR FOR WORSENING SYMPTOMS - FEVER, CHILLS, LACK OF URINATION, HEMATURIA FOLLOW UP IN 3 WEEKS, UA, PVR?? * Procedure Codes: 8 1003 URINALYSIS, AUTO, W/O SCOPE, Modifiers: QW 3075F SYST BP GE 130 - 139MM [id number] DIAST BP 80-89 MM HG * Follow Up: 3 Weeks (Reason: see other) Billing Information: * Visit Code: 42145 Office Visit, Est Pt., Level 4. * Procedure Codes: 96510 URINALYSIS, AUTO, W/O SCOPE. Modifiers: QW 3075F SYST BP GE 130 - 139MM HG. 3079F DIAST BP 80-89 MM HG. * Sign off status: Completed true * Provider: MARLO Zhou Date: 05/29/2025 Generated for Nicole preston/Angelita/Sabiha on: 05/30/2025 01:50 PM CDT
[2025-05-30] VITALS (8 sets, daily range): BP systolic 110–122; BP diastolic 55–71; PULSE 76–99; RESP 16–17; TEMP 37.8; O2SAT 91–93
--- OUTSIDE RECORDS SUMMARY | 2025-05-30 15:32 | XMS_ITS | Patient Health Record ---
Author Organization [facility] [employer] [facility] Address [address] [address] Care Team Providers Care Hospitality Ambassador Name Role Phone Radha Engel Unavailable [phone] Allergies Allergen (clinical drug ingredient) Drug/Non Drug Allergy documented on EMR Reaction Allergy Type Onset Date Status Penicillin Unknown Drug Allergy Active Reason For Referral No Information Medications Medication SIG (Take, Route, Frequency, Duration) Notes Start Date End Date Status Losartan Potassium 25 MG 1 tablet Orally Once a day Active Atorvastatin Calcium 40 MG 1 tablet Oral ly Once a day Active Aspirin 81 MG 1 tablet Orally Once a day Active Nitrofurantoin Monohyd Macro 100 MG Oral; Duration: 10 Days Active Alfuzosin HCl ER 10 MG Oral; Duration: 3 0 Days Not-Taking Tamsulosin HCl 0.4 MG Oral; Duration: 90 Days Not-Taking Social History Sex Assigned At : Social History Observation Description Sex Assigned At Male Problems Problem Type SNOMED Code ICD Code Onset Dates Problem Status W/U Status Risk Notes Problem Atrial fibrillation (14709427) Atrial fibrillation, unspecified type (I48.91) Active confirmed Vital Signs Heart Rate 95 /min 05/30/2025 Temperature 97.8 degrees Fahrenheit 05/30/2025 Blood pressure diastolic 61 mm Hg 05/30/2025 Oximetry 98 % 05/30/2025 Weight-kg 97.98 kg 05/30/2025 Blood pressure systolic 108 mm Hg 05/30/2025 Weight 216.0 lbs 05/30/2025 Encounters Encounter Location Date Provider Diagnosis [facility] [place] [facility] [address] [facility] [address] [place] [address] 05/30/2025 Radha Engel [facility] [address] [address] 08/22/2024 Radha Engel Atrial fibrillation, unspecified type I48.91 and URI, acute J06.9 [facility] [address] [place] [phone] 08/23/2024 Radha Engel [facility] [address] [place] [phone] 08/23/2024 Radha Engel Assessments Encounter Date Diagnosis (ICD Code) Assessment Notes Treatment Notes Treatment Clinical Notes Section Notes 08/22/2024 URI, acute (ICD-10 - J06.9) COVID: NEG FLU A/B: NEG 08/22/2024 Atrial fibrillation, unspecified type (ICD-10 - I48.91) He will go to [facility] ER now per private car. will drive him He is stable, rate is controlled. No chest pain or hypotension [facility] emergency room triage notified. Alyssa. Plan Of Treatment No Information Insurance Providers Payer Name Payer Address Payer Phone Subscriber Number Group Number Insured Name Patient Relationship to Insured Coverage Start Date Coverage End Date [employer] [address] [address] [place], [place] [id number] Magdy Varner Self - patient is the insured Medical (General) History Medical History History ICD Code TAVR 2019 hyperlipidemia hypertension cardiology: Dr Csatillo [id number] Surgical History Surgery Date(Month/Year) TAVR 2019
--- OUTSIDE RECORDS SUMMARY | 2025-05-30 15:32 | XMS_ITS | Patient Health Record ---
Author Organization [facility] Address [address] [place] [address] Care Team Providers Care Stonemason Apprentice Name Role Phone Agustin Daya Primary Care Provider UnavailEmilee Merino Unavailable Johnathan Casas Unavailable [phone] Allergies Allergen (clinical drug ingredient) Drug/Non Drug Allergy documented on EMR Reaction Allergy Type Onset Date Status Penicillin Unknown Drug Allergy Active Results Component Value Reference Range Notes UA Without Micro-[place], [place] - [id number] Reviewed date:06/23/2024 09:37:27 AM Interpretation: Performing Lab: Notes/Report: Glucose 0 Bili 0 Ketones 0 Sp [place] 1.015 Blood 0 pH 6.0 Protein 0 Urobili 0 Nitrites + Leukocytes 1+ Culture Urine [id number] Reviewed date:07/07/2024 07:55:37 AM Interpretation: Performing Lab: Notes/Report: Culture Urine TERESA Peoples Culture Urine t: Culture Urine Culture Urine Accessio [id number] Culture Urine n: Culture Urine Microbiology Culture Urine PROCEDURE: Culture U rine [O1] Culture Urine SOURCE: Urine BODY SITE: Culture Urine COLLECTED DATE/TIME: 06/23/2024 09:40 CDT RECEIVED DATE/TIME: 06/23/2024 14:50 CDT Culture Urine START DATE/TIME: 14:50 CDT FREE TEXT SOURCE: Culture Urine FINAL REPORT Culture Urine Final Report [] Culture Urine Verified Date/Time: 06/25/2024 05:39 CDT Culture Urine >100,000 cfu/ml. Cit robacter diversus Culture Urine SUSCEPTIBILITY RESULTS Culture Urine Citdiv Culture Urine Antibiotic MDIL MINT Culture Urine Cefepime <=0.12 Susceptible Culture Urine Ceftazidime <=0.5 Susceptible Culture Urine Ceftriaxone <=0.25 Susceptible Culture Urine Ciprofloxacin <=0.06 Susceptible Culture Urine Gentamicin <=1 Susceptible Culture Urine Levofloxacin <=0.12 Susceptible Culture Urine Nitrofurantoin 64 Intermediate Culture Urine Piperacillin/Tazobac richard <=4 Susceptible Culture Urine Order Comments Culture Urine O1: Culture Urine (C ulture Urine [id number]) Culture Urine Diagnosis Descriptio n: Frequency of micturition UA Without Micro-Auto, [facility] - [id number] Reviewed date:08/18/2024 10:48:15 AM Interpretation: Performing Lab: Notes/Report: Glucose 0 Bili 0 Ketones 0 Sp [place] 1.020 Blood +- pH 6.0 Protein 0 Urobili 0 Nitrites + Leukocytes 0 UA Without Micro-Auto, [facility] [place] - [id number] Reviewed date:09/21/2024 08:57:09 AM Interpretation: Performing Lab: Notes/Report: Glucose 0 Bili 0 Ketones 0 Sp [place] 1.015 Blood 0 pH 6.0 Protein 0 Urobili 0 Nitrites 0 Leukocytes 0 UA Without Micro-Auto, [facility] - [id number] Reviewed date:03/22/2025 08:42:22 AM Interpretation: Performing Lab: Notes/Report: Glucose 0 Bili 0 Ketones 0 Sp [place] 1.015 Blood 0 pH 6.0 Protein 0 Urobili 0 Nitrites 0 Leukocytes 0 UA Without Micro-Auto, [facility] [place] - [id number] Reviewed date:05/29/2025 08:21:11 AM Interpretation: Performing Lab: Notes/Report: Glucose 0 Bili 0 Ketones 0 Sp [place] 1.020 Blood 3+ pH 6.0 Protein 2+ Urobili 0 Nitrites 0 Leukocytes 3+ Culture Urine [id number] Reviewed date:05/30/2025 01:04:35 PM Interpretation: Performing Lab: Notes/Report: Culture Urine TERESA Peoples Culture Urine t: Culture Urine Culture Urine Accessio [id number] Culture Urine n: Culture Urine Microbiology Culture [...] Urine O1: Culture Urine (C ulture Urine [id number]) Culture Urine Diagnosis Descriptio n: Unspecified abnormal findings in urine Reason For Referral No Information Medications Medication [...] Notes Tobacco Control (Standard) Tobacco use: Nonsmoker Problems Problem Type SNOMED Code ICD Code Onset Dates Problem Status W/U Status Risk Notes Problem Acute cystitis (09856133) Acute cystitis without hematuria (N30.00) Active confirmed Problem Urinary frequency (813891496) Urinary frequency (R35.0) Active confirmed Problem Urinary retention (481263602) Urinary retention (R33.9) Active confirmed Problem Urination painful (63787845) Painful urination (R30.9) Active confirmed Problem Recurrent urinary tract infection (994468015) Recurrent UTI (N39.0) Active confirmed Problem 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) BPH loc w urin obs/LUTS (N40.1) Active confirmed Vital Signs Heart Rate 72 /min 05/29/2025 Temperature 98.6 degrees Fahrenheit 05/29/2025 Height-cm 172.72 cm 05/29/2025 Blood pressure diastolic 85 mm Hg 05/29/2025 Weight-kg 97.07 kg 05/29/2025 Height 68 in 05/29/2025 Blood pressure systolic 130 mm Hg 05/29/2025 Weight 214.0 lbs 05/29/2025 BMI 32.54 kg/m2 05/29/2025 Procedures Procedure Date Ordered Date Performed Result Body Sit e PVR (Post Void Residual) 08/18/2024 08/18/2024 N/A PVR (Post Void Residual) 09/21/2024 09/21/2024 N/A Encounters Encounter Location Date Provider Diagnosis [facility] [address] [place] [address] [place] [address], [place] [address] 06/23/2024 Emilee Ireland Urinary frequency R35.0 ; Painful urination R30.9 and Acute cystitis without hematuria N30.00 [facility] [address] [place] [address] [place] [address], [place] [address] 08/18/2024 Emilee Ireland Painful urination R30.9 ; Urinary frequency R35.0 and Acute cystitis without hematuria N30.00 [facility] [address] [place] [address] Dr [place] [address] [place] [address], [place] [address] 09/21/2024 Emilee Ireland BPH loc w urin obs/LUTS N40.1 ; Urinary frequency R35.0 ; Painful urination R30.9 ; Urinary retention R33.9 and Recurrent UTI N39.0 [facility] [address] [place] [address] [place] [address], [place] [address] 03/22/2025 Emilee Ireland Recurrent UTI N39.0 ; Urinary frequency R35.0 ; BPH loc w urin obs/LUTS N40.1 and Urinary retention R33.9 [facility] [address] [place] [address] [place] [address], [place] [address] 05/29/2025 Emilee Ireland Urinary frequency R35.0 ; Recurrent UTI N39.0 ; BPH loc w urin obs/LUTS N40.1 and Unspecified abnormal findings in urine R82.90 [facility] [address] [place] [address] [place] [address], [place] [address] 06/23/2024 Johnathan Casas Encounter for screening for malignant neoplasm of prostate Z12.5 [facility] [address] [place] [address] 08/21/2024 Johnathan Casas [facility] [address] [place] [address] 03/22/2025 Johnathan Casas Encounter for screening for malignant neoplasm of prostate Z12.5 [facility] [address] [place] [address] 05/29/2025 Emilee Ireland Assessments Encounter Date Diagnosis (ICD Code) Assessment Notes Treatment Notes Treatment Clinical Notes Section Notes 06/23/2024 Urinary frequency (ICD-10 - R35.0) Understanding UTIs Definition: A UTI is an infection in any part of the urinary system, including kidneys, ureters, bladder, and urethra. Symptoms: Common symptoms include a strong, persistent urge to urinate, a burning sensation when urinating, cloudy or strong-smelling urine, and pelvic pain. Prevention Tips Hydration: Drink plenty of fluids, especially water, to help flush out bacteria. Hygiene: (Females) Wiping from front to back to prevent bacteria from the anal region from spreading to the urethra. Urination Habits: Recommend urinating frequently and not holding urine for long periods. Urinating after sexual intercourse can also help clear bacteria. Clothing: We suggest wearing loose-fitting clothing and cotton underwear to keep the area dry and reduce bacterial growth. When to Seek Medical Attention If symptoms persist for more than a couple of days. If there is fever,chills, back pain, altered mental status, or blood in the urine If the patient is , has diabetes, or is immunocompromised. Treatment Antibiotics: Antibiotics are the primary treatment for UTIs. It is important to complete the full course of antibiotics even if symptoms improve. Pain Relief: Ewgx-sxd-qfdivog pain relievers like Ibuprofen (unless contraindicated) or acetaminophen can help manage discomfort. 06/23/2024 Painful urination (ICD-10 - R30.9) Understanding UTIs Definition: A UTI is an infection in any part of the urinary system, including kidneys, ureters, bladder, and urethra. Symptoms: Common symptoms include a strong, persistent urge to urinate, a burning sensation when urinating, cloudy or strong-smelling urine, and pelvic pain. Prevention Tips Hydration: Drink plenty of fluids, especially water, to help flush out bacteria. Hygiene: (Females) Wiping from front to back to prevent bacteria from the anal region from spreading to the urethra. Urination Habits: Recommend urinating frequently and not holding urine for long periods. Urinating after sexual intercourse can also help clear bacteria. Clothing: We suggest wearing loose-fitting clothing and cotton underwear to keep the area dry and reduce bacterial growth. When to Seek Medical Attention If symptoms persist for more than a couple of days. If there is fever,chills, back pain, altered mental status, or blood in the urine If the patient is , has diabetes, or is immunocompromised. Treatment Antibiotics: Antibiotics are the primary treatment for UTIs. It is important to complete the full course of antibiotics even if symptoms improve. Pain Relief: Yrsh-byp-hovtevv pain relievers like Ibuprofen (unless contraindicated) or acetaminophen can help manage discomfort. 06/23/2024 Encounter for screening for malignant neoplasm of prostate (ICD-10 - Z12.5) 08/18/2024 Urinary frequency (ICD-10 - R35.0) Wash hands frequently to prevent spread of infection If taking medication for this, please continue to do so as ordered, with the exception that you are told to stop. For patients experiencing urinary frequency, here are some benson points to consider: Overactive Bladder (OAB): This condition is characterized by symptoms such as urgency, frequency, and urge urinary incontinence. Strengthening pelvic floor muscles and regular physical activity can help manage symptoms. Dysuria and Urinary Frequency: Patients often describe discomfort as burning or stinging during urination. This can be associated with urethral issues. Urinary Tract Infections (UTIs): UTIs can cause symptoms like frequency and urgency. It's important to monitor for these symptoms, especially if a catheter is in place. Medications: Drugs like Tamsulosin are used to treat urinary frequency and urgency, particularly in conditions like benign prostatic hyperplasia (BPH). Lower Urinary Tract Symptoms (LUTS): These include frequency, urgency, and urge incontinence. Management may involve lifestyle changes and medications. Enlarged Prostate (BPH): Symptoms include trouble starting urination, weak stream, nocturia, and urgency. Treatment options vary based on severity. Urinary Incontinence in Older Adults: This can be managed with lifestyle changes, pelvic floor exercises, and sometimes medications. Patients should consult with their healthcare provider for a personalized approach to managing urinary frequency and related symptoms. 08/18/2024 Painful urination (ICD-10 - R30.9) If you believe you have a UTI, please come to the office and give urine specimen If you are taking medication for this, please finish the prescription, unless otherwise told Recurrent Urinary Tract Infections (UTIs): Patient Information Overview: Recurrent UTIs are defined as having two or more infections within six months or three or more infections within a year. They are more common in women but can affect anyone. Recurrent UTIs can significantly impact quality of life and may require ongoing management. Symptoms: Frequent urination Urgent need to urinate Burning sensation during urination Cloudy or strong-smelling urine Blood in the urine (hematuria) Pelvic pain or discomfort Causes: Anatomical Factors: [place] urethra in women, structural abnormalities in the urinary tract. Sexual Activity: Increases the risk of introducing bacteria into the urinary tract. Menopause: Decreased estrogen levels can lead to changes in the urinary tract that increase susceptibility to infections. Incomplete Bladder Emptying: Conditions like bladder prolapse or neurological disorders. Previous UTIs: History of UTIs can increase the risk of recurrence. Diagnosis: Urinalysis: To detect bacteria, blood, or pus in the urine. Urine Culture: To identify the specific bacteria causing the infection. Imaging Tests: Ultrasound or CT scans to check for abnormalities in the urinary tract. Cystoscopy: A procedure using a scope to view the inside of the bladder. Treatment: Antibiotics: Short or long-term antibiotic therapy to treat and prevent infections. Prophylactic Antibiotics: Low-dose antibiotics taken regularly to prevent infections. Post-Coital Antibiotics: Single-dose antibiotics taken after sexual activity. Non-Antibiotic Prophylaxis: Cranberry Products: May help prevent bacteria from adhering to the bladder wall. D-Mannose: A sugar that can prevent certain bacteria from sticking to the urinary tract. Probiotics: To maintain a healthy balance of bacteria in the urinary tract. Topical Estrogen: For postmenopausal women to reduce the risk of infections. Prevention: Hydration: Drink plenty of fluids to flush out bacteria. Hygiene: Wipe from front to back after using the toilet to prevent bacteria from spreading. Urinate Frequently: Avoid holding urine for long periods. Post-Coital Hygiene: Urinate after sexual activity to flush out bacteria. Avoid Irritants: Avoid using irritating feminine products like douches and powders. Patient Education: Understanding the Condition: Educate patients about the causes and risk factors of recurrent UTIs. Adherence to Treatment: Emphasize the importance of completing antibiotic courses and following preventive measures. Lifestyle Modifications: Encourage changes in diet, hydration, and hygiene practices to reduce the risk of recurrence. Monitoring Symptoms: Keep a diary of symptoms and triggers to help manage the condition effectively. When to Seek Medical Attention: Persistent or worsening symptoms despite treatment. Signs of a severe infection, such as fever, chills, or back pain. 09/21/2024 Urinary frequency (ICD-10 - R35.0) If taking medication for this, please continue to do so as ordered, with the exception that you are told to stop. For patients experiencing urinary frequency, here are some benson points to consider: Overactive Bladder (OAB): This condition is characterized by symptoms such as urgency, frequency, and urge urinary incontinence. Strengthening pelvic floor muscles and regular physical activity can help manage symptoms. Dysuria and Urinary Frequency: Patients often describe discomfort as burning or stinging during urination. This can be associated with urethral issues. Urinary Tract Infections (UTIs): UTIs can cause symptoms like frequency and urgency. It's important to monitor for these symptoms, especially if a catheter is in place. Medications: Drugs like Tamsulosin are used to treat urinary frequency and urgency, particularly in conditions like benign prostatic hyperplasia (BPH). Lower Urinary Tract Symptoms (LUTS): These include frequency, urgency, and urge incontinence. Management may involve lifestyle changes and medications. Enlarged Prostate (BPH): Symptoms include trouble starting urination, weak stream, nocturia, and urgency. Treatment options vary based on severity. Urinary Incontinence in Older Adults: This can be managed with lifestyle changes, pelvic floor exercises, and sometimes medications. Patients should consult with their healthcare provider for a personalized approach to managing urinary frequency and related symptoms. 09/21/2024 BPH loc w urin obs/LUTS (ICD-10 - N40.1) If taking medication for this, please continue to do so as ordered, with the exception that you are told to stop. If you are interested in a procedure, ask to talk to Dr. Casas or Dominique When educating patients about Benign Prostatic Hyperplasia (BPH), it's important to cover the following points: What is BPH? BPH is a non-cancerous enlargement of the prostate gland that commonly occurs as men age. It can lead to urinary symptoms due to the compression of the urethra. Symptoms: Frequent urination, especially at night (nocturia). Difficulty starting urination (hesitancy). Weak or interrupted urine stream. Feeling of incomplete bladder emptying. Urgency to urinate. Dribbling at the end of urination. Causes: The exact cause of BPH is not well understood, but it is believed to be related to hormonal changes as men age, particularly the balance between testosterone and estrogen. Diagnosis: Medical History and Physical Exam: Including a digital rectal exam (MAXWELL) to assess the size of the prostate. Urinalysis: To rule out infections or other conditions. Prostate-Specific Antigen (PSA) Test: To help rule out prostate cancer. Uroflowmetry: Measures the strength and amount of urine flow. Postvoid Residual Volume Test: Measures the amount of urine left in the bladder after urination. Imaging: Ultrasound or other imaging tests to assess the prostate and urinary tract. Treatment Options: Lifestyle Changes: Reducing fluid intake before bedtime. Limiting caffeine and alcohol, which can irritate the bladder. Regular physical activity and maintaining a healthy weight. Medications: Alpha-blockers (e.g., tamsulosin) to relax the muscles of the prostate and bladder neck. 8-kruur-wagnbqshi inhibitors (e.g., finasteride) to shrink the prostate. Combination therapy for more severe symptoms. Minimally Invasive Procedures: Transurethral microwave thermotherapy (TUMT). Transurethral needle ablation (TUNA). Surgical Options: Transurethral resection of the prostate (TURP). Laser surgery. Prostatectomy for very large prostates. Risks and Complications: Untreated BPH can lead to urinary retention, bladder stones, recurrent urinary tract infections, and kidney damage. Potential side effects of treatments, such as sexual dysfunction, urinary incontinence, and bleeding. Prognosis: BPH is a chronic condition, but symptoms can be managed effectively with appropriate treatment. Regular follow-up is important to monitor the condition and adjust treatment as needed. When to Seek Medical Attention: If the patient experiences severe urinary symptoms, pain, blood in the urine, or inability to urinate, they should seek immediate medical attention. By providing this information, patients can better understand BPH, the available treatment options, and when to seek further medical advice. 03/22/2025 Encounter for screening for malignant neoplasm of prostate (ICD-10 - Z12.5) 05/29/2025 Urinary frequency (ICD-10 - R35.0) 05/29/2025 Recurrent UTI (ICD-10 - N39.0) 03/22/2025 Urinary frequency (ICD-10 - R35.0) PLAN - CONTINUE TO TAKE MEDICATION PRESCRIBED. CONTINUE Alfuzosin 03/22/2025 Recurrent UTI (ICD-10 - N39.0) PATIENT WILL CONTACT OFFICE IF THEY ARE HAVING S/S OF UTI, CAN COME IN FOR [place] TO PROVIDE SAMPLE. Symptoms: Common symptoms include a strong, persistent urge to urinate, a burning sensation when urinating, cloudy or strong-smelling urine, and pelvic pain. 03/22/2025 BPH loc w urin obs/LUTS (ICD-10 - N40.1) PLAN - CONTINUE TO TAKE MEDICATION PRESCRIBED. CONTINUE Alfuzosin 06/23/2024 Acute cystitis without hematuria (ICD-10 - N30.00) Understanding UTIs Definition: A UTI is an infection in any part of the urinary system, including kidneys, ureters, bladder, and urethra. Symptoms: Common symptoms include a strong, persistent urge to urinate, a burning sensation when urinating, cloudy or strong-smelling urine, and pelvic pain. Prevention Tips Hydration: Drink plenty of fluids, especially water, to help flush out bacteria. Hygiene: (Females) Wiping from front to back to prevent bacteria from the anal region from spreading to the urethra. Urination Habits: Recommend urinating frequently and not holding urine for long periods. Urinating after sexual intercourse can also help clear bacteria. Clothing: We suggest wearing loose-fitting clothing and cotton underwear to keep the area dry and reduce bacterial growth. When to Seek Medical Attention If symptoms persist for more than a couple of days. If there is fever,chills, back pain, altered mental status, or blood in the urine If the patient is , has diabetes, or is immunocompromised. Treatment Antibiotics: Antibiotics are the primary treatment for UTIs. It is important to complete the full course of antibiotics even if symptoms improve. Pain Relief: Nwts-yyf-velrudr pain relievers like Ibuprofen (unless contraindicated) or acetaminophen can help manage discomfort. 05/29/2025 BPH loc w urin obs/LUTS (ICD-10 - N40.1) 09/21/2024 Painful urination (ICD-10 - R30.9) Dysuria, commonly referred to as painful or uncomfortable urination, is a symptom that can be caused by various underlying conditions. Here are some benson points relevant to clinicians: Etiology: Dysuria can result from infections (e.g., urinary tract infections, sexually transmitted infections), inflammation (e.g., interstitial cystitis), or other conditions such as urolithiasis or malignancies. Evaluation: A thorough patient history and physical examination are crucial. Important aspects include: Sexual history: To rule out sexually transmitted infections. Medical history: Including any previous urinary tract infections, surgeries, or known urological conditions. Symptoms: Frequency, urgency, hematuria, and any associated systemic symptoms like fever or flank pain. Diagnostic Tests: Urinalysis: To check for signs of infection, hematuria, or other abnormalities. Urine culture: Particularly if an infection is suspected. Imaging: Ultrasound or CT scan if structural abnormalities or stones are suspected. Specialized tests: Such as cystoscopy or urodynamic studies in complex cases. Management: Empiric Antibiotics: Often started in cases of suspected bacterial infection, tailored based on culture results. Pain Management: NSAIDs or phenazopyridine can be used for symptomatic relief. Addressing Underlying Causes: Treatment varies depending on the etiology, such as antibiotics for infections, or specific therapies for interstitial cystitis. Patient Education: Inform patients about the importance of completing antibiotic courses, potential side effects of medications, and when to seek further medical attention. Follow-Up: Necessary to ensure resolution of symptoms and to manage any recurrent or persistent cases. For more detailed information, refer to clinical guidelines and resources such as the [employer] [facility], [facility], and [facility]. 03/22/2025 Urinary retention (ICD-10 - R33.9) PLAN - CONTINUE TO TAKE MEDICATION PRESCRIBED. CONTINUE Alfuzosin 09/21/2024 Urinary retention (ICD-10 - R33.9) If you are taking medication for this, please continue to do so, unless otherwise told to stop. *Patient Education on Urinary Retention Understanding Urinary Retention Definition: Urinary retention is the inability to empty the bladder completely or at all. It can be acute (sudden and severe) or chronic (gradual and ongoing). Types: Acute Urinary Retention: A medical emergency where the patient cannot urinate at all, causing severe pain and discomfort. Chronic Urinary Retention: A condition where the bladder does not empty completely, leading to frequent urination and other complications. Causes Obstruction: Blockages in the urinary tract, such as an enlarged prostate, urethral stricture, or bladder stones. Nerve Problems: Conditions like diabetes, multiple sclerosis, or spinal cord injuries that affect nerve signals to the bladder. Medications: Certain drugs, including antihistamines, decongestants, and muscle relaxants, can interfere with bladder function. Infections: Urinary tract infections (UTIs) can cause swelling and obstruction. Postoperative: Anesthesia and surgery, particularly pelvic or abdominal procedures, can temporarily affect bladder function. Symptoms Acute Urinary Retention: Sudden inability to urinate, severe lower abdominal pain, and a distended bladder. Chronic Urinary Retention: Frequent urination, difficulty starting urination, weak urine stream, feeling of incomplete bladder emptying, and urinary incontinence. Diagnosis Medical History and Physical Exam: Assessment of symptoms, medical history, and a physical examination, including a digital rectal exam for men. Bladder Scan: Ultrasound to measure the amount of urine left in the bladder after urination. Urodynamic Tests: Assess bladder function and urine flow. Cystoscopy: A scope inserted into the bladder to look for blockages or abnormalities. Treatment Options Catheterization: Inserting a catheter to drain the bladder, providing immediate relief in acute cases. Medications: Alpha-blockers to relax the bladder neck muscles and prostate, or antibiotics if an infection is present. Surgery: Procedures to remove blockages, such as transurethral resection of the prostate (TURP) for an enlarged prostate. Behavioral Therapies: Bladder training and pelvic floor exercises to improve bladder control. Self-Management Strategies Scheduled Voiding: Urinating at regular intervals to prevent bladder overdistension. Double Voiding: Urinating, then waiting a few minutes and trying again to ensure the bladder is empty. Fluid Management: Drinking adequate fluids but avoiding excessive intake, especially before bedtime. Avoid Bladder Irritants: Reducing intake of caffeine, alcohol, and spicy foods. Preventive Measures Regular Check-Ups: Monitoring for conditions that can lead to urinary retention, such as prostate enlargement. Pelvic Floor Exercises: Strengthening pelvic muscles to improve bladder control. Medication Review: Discussing with healthcare providers the potential side effects of medications that may affect bladder function. When to Seek Medical Attention Acute Symptoms: Sudden inability to urinate, severe pain, or a distended bladder requires immediate medical attention. Persistent Symptoms: Difficulty urinating, frequent urination, or a weak urine stream should be evaluated by a healthcare provider. 08/18/2024 Acute cystitis without hematuria (ICD-10 - N30.00) If you believe you have a UTI, please come to the office and give urine specimen If you are taking medication for this, please finish the prescription, unless otherwise told Recurrent Urinary Tract Infections (UTIs): Patient Information Overview: Recurrent UTIs are defined as having two or more infections within six months or three or more infections within a year. They are more common in women but can affect anyone. Recurrent UTIs can significantly impact quality of life and may require ongoing management. Symptoms: Frequent urination Urgent need to urinate Burning sensation during urination Cloudy or strong-smelling urine Blood in the urine (hematuria) Pelvic pain or discomfort Causes: Anatomical Factors: [place] urethra in women, structural abnormalities in the urinary tract. Sexual Activity: Increases the risk of introducing bacteria into the urinary tract. Menopause: Decreased estrogen levels can lead to changes in the urinary tract that increase susceptibility to infections. Incomplete Bladder Emptying: Conditions like bladder prolapse or neurological disorders. Previous UTIs: History of UTIs can increase the risk of recurrence. Diagnosis: Urinalysis: To detect bacteria, blood, or pus in the urine. Urine Culture: To identify the specific bacteria causing the infection. Imaging Tests: Ultrasound or CT scans to check for abnormalities in the urinary tract. Cystoscopy: A procedure using a scope to view the inside of the bladder. Treatment: Antibiotics: Short or long-term antibiotic therapy to treat and prevent infections. Prophylactic Antibiotics: Low-dose antibiotics taken regularly to prevent infections. Post-Coital Antibiotics: Single-dose antibiotics taken after sexual activity. Non-Antibiotic Prophylaxis: Cranberry Products: May help prevent bacteria from adhering to the bladder wall. D-Mannose: A sugar that can prevent certain bacteria from sticking to the urinary tract. Probiotics: To maintain a healthy balance of bacteria in the urinary tract. Topical Estrogen: For postmenopausal women to reduce the risk of infections. Prevention: Hydration: Drink plenty of fluids to flush out bacteria. Hygiene: Wipe from front to back after using the toilet to prevent bacteria from spreading. Urinate Frequently: Avoid holding urine for long periods. Post-Coital Hygiene: Urinate after sexual activity to flush out bacteria. Avoid Irritants: Avoid using irritating feminine products like douches and powders. Patient Education: Understanding the Condition: Educate patients about the causes and risk factors of recurrent UTIs. Adherence to Treatment: Emphasize the importance of completing antibiotic courses and following preventive measures. Lifestyle Modifications: Encourage changes in diet, hydration, and hygiene practices to reduce the risk of recurrence. Monitoring Symptoms: Keep a diary of symptoms and triggers to help manage the condition effectively. When to Seek Medical Attention: Persistent or worsening symptoms despite treatment. Signs of a severe infection, such as fever, chills, or back pain. 09/21/2024 Recurrent UTI (ICD-10 - N39.0) If you believe you have a UTI, please come to the office and give urine specimen If you are taking medication for this, please finish the prescription, unless otherwise told Recurrent Urinary Tract Infections (UTIs): Patient Information Overview: Recurrent UTIs are defined as having two or more infections within six months or three or more infections within a year. They are more common in women but can affect anyone. Recurrent UTIs can significantly impact quality of life and may require ongoing management. Symptoms: Frequent urination Urgent need to urinate Burning sensation during urination Cloudy or strong-smelling urine Blood in the urine (hematuria) Pelvic pain or discomfort Causes: Anatomical Factors: [place] urethra in women, structural abnormalities in the urinary tract. Sexual Activity: Increases the risk of introducing bacteria into the urinary tract. Menopause: Decreased estrogen levels can lead to changes in the urinary tract that increase susceptibility to infections. Incomplete Bladder Emptying: Conditions like bladder prolapse or neurological disorders. Previous UTIs: History of UTIs can increase the risk of recurrence. Diagnosis: Urinalysis: To detect bacteria, blood, or pus in the urine. Urine Culture: To identify the specific bacteria causing the infection. Imaging Tests: Ultrasound or CT scans to check for abnormalities in the urinary tract. Cystoscopy: A procedure using a scope to view the inside of the bladder. Treatment: Antibiotics: Short or long-term antibiotic therapy to treat and prevent infections. Prophylactic Antibiotics: Low-dose antibiotics taken regularly to prevent infections. Post-Coital Antibiotics: Single-dose antibiotics taken after sexual activity. Non-Antibiotic Prophylaxis: Cranberry Products: May help prevent bacteria from adhering to the bladder wall. D-Mannose: A sugar that can prevent certain bacteria from sticking to the urinary tract. Probiotics: To maintain a healthy balance of bacteria in the urinary tract. Topical Estrogen: For postmenopausal women to reduce the risk of infections. Prevention: Hydration: Drink plenty of fluids to flush out bacteria. Hygiene: Wipe from front to back after using the toilet to prevent bacteria from spreading. Urinate Frequently: Avoid holding urine for long periods. Post-Coital Hygiene: Urinate after sexual activity to flush out bacteria. Avoid Irritants: Avoid using irritating feminine products like douches and powders. Patient Education: Understanding the Condition: Educate patients about the causes and risk factors of recurrent UTIs. Adherence to Treatment: Emphasize the importance of completing antibiotic courses and following preventive measures. Lifestyle Modifications: Encourage changes in diet, hydration, and hygiene practices to reduce the risk of recurrence. Monitoring Symptoms: Keep a diary of symptoms and triggers to help manage the condition effectively. When to Seek Medical Attention: Persistent or worsening symptoms despite treatment. Signs of a severe infection, such as fever, chills, or back pain. 05/29/2025 Unspecified abnormal findings in urine (ICD-10 - R82.90) 03/22/2025 Other Follow up in 6 months with PSA - send labs to [facility], place copy of fax in patient documents showing proof of fax please UA and PVR next appt. Continue Alfuzosin 10 mg 05/29/2025 Other PATIENT WILL START NITROFURANTOIN 100MG BID FOR 7 DAYS CULTURE URINE PATIENT WILL CONTINUE TO MONITOR FOR WORSENING SYMPTOMS - FEVER, CHILLS, LACK OF URINATION, HEMATURIA FOLLOW UP IN 3 WEEKS, UA, PVR Plan Of Treatment Pending Test Test Name Order Date Culture Urine [id number] 08/18/2024 Future Test Test Name Order Date PSA Diagnostic--[id number] 07/07/2024 PSA Diagnostic--[id number] 09/06/2025 Next Appt Details Provider Name:Emilee Chris, 06/19/2025 01:00:00 PM, [address] [facility], [place], [address], Provider Name:Emilee Chris, 09/24/2025 08:30:00 AM, [address], [place], [address], Insurance Providers Payer Name Payer Address Payer Phone Subscriber Number Group Number Insured Name Patient Relationship to Insured Coverage Start Date Coverage End Date [employer] Medicare Replacement [address] [address] [place] [address] [id number] Teresa Varner Self - patient is the insured Medical (General) History Surgical History Surgery Date(Month/Year) Heart Valve Replacement appendectomy Testicular surgery Polyps on Colon Hospitalization History Reason Date(Month/Year) See surgeries high heart rate 09/02
--- NOTE | 2025-05-30 15:38 | XR_ITS ---
WS: [id number] Exam: XR chest 1V portable [id number] Date/Time of Exam: 05/30/2025 4:02 PM Reason For Exam: Shortness of breath Comparison 08/22/2024. The lungs are clear. Chronic plaque atelectasis in the RIGHT lower lung zone. Chronically elevated RIGHT diaphragm. Cardiomediastinal silhouette is unremarkable for technique. No pleural effusion. Bony structures are intact. XR/XR chest 1V portable [id number] IMPRESSION: 1. No acute cardiopulmonary finding. Chronic changes as detailed above.
--- NOTE | 2025-05-30 15:40 | ECG_ITS ---
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 Measurements Intervals [place] Rate: 99 P: 40 MT: 205 QRS: -35 QRSD: 106 T: 72 QT: 333 QTc: 429 Interpretive Statements SINUS RHYTHM WITH FREQUENT SUPRAVENTRICULAR PREMATURE COMPLEXES LEFT AXIS DEVIATION [QRS AXIS < -30] SEPTAL MYOCARDIAL INFARCTION , PROBABLY OLD [40+ ms Q WAVE IN V1/V2] INTERPRETATION BASED ON A DEFAULT AGE OF 40 YEARS Compared to ECG 08/22/2024 12:15:54 Atrial fibrillation no longer present Ventricular premature complex no longer present Electronically Signed On 05-30-2025 20:45:30 CDT by Cameron Gregory M.D. [id number]
--- NOTE | 2025-05-30 15:56 | W.ED.SOB ---
HPI - SOB/Dyspnea General: Chief Complaint: Shortness of Breath/Dyspnea Stated Complaint: Coughing that his chest hurts SOB Time Seen by Provider: 05/30/25 15:46 History of Present Illness: HPI Narrative: 85-year-old man with a history of hyperlipidemia, BPH, hypertension and porcine aortic valve replacement who presents emergency room with cough and malaise with some mild shortness of breath for the last couple of days now. He gone to clinic and his O2 sat was around 90 and they felt he needed evaluated in the emergency room. On presentation here sats stayed in the low 90s. No chest pain. Temp of 100.0 here. No altered mental status. No abdominal pain. No nausea or vomiting. Related Data Home Medications ?Medication ?Instructions ?Recorded ?Confirmed aspirin 81 mg tablet,delayed 81 mg PO QPM 07/11/20 05/30/25 release (Adult Aspirin Regimen) atorvastatin 40 mg tablet 40 mg PO QPM 07/11/20 05/30/25 alfuzosin 10 mg tablet,extended 10 mg PO QPM 05/30/25 05/30/25 release 24 hr losartan 25 mg tablet 25 mg PO QPM 05/30/25 05/30/25 [id number] 1 pkg PO BID 05/30/25 05/30/25 acid-lutein 0.4 mg-250 mcg oral combo pack (Men's Pack) nitrofurantoin 100 mg PO BID 05/30/25 05/30/25 monohydrate/macrocrystals 100 mg capsule Previous Rx's ?Medication ?Instructions ?Recorded benzonatate 200 mg capsule 200 mg PO TID PRN cough #30 caps 05/30/25 dexamethasone 6 mg tablet 6 mg PO DAILY 5 days #5 tabs 05/30/25 doxycycline monohydrate 100 mg 100 mg PO BID 10 days #20 caps 05/30/25 capsule Allergies Allergy/AdvReac Type Severity Reaction Status Date / Time amoxicillin Allergy itching,staci Verified 05/30/25 15:45 lucinations Penicillins Allergy itching, Verified 05/30/25 15:45 hallucinations Review of Systems Narrative: Constitutional symptoms: Negative except as documented in HPI. Skin symptoms: Negative except as documented in HPI. Eye symptoms: Negative except as documented in HPI. ENMT symptoms: Negative except as documented in HPI. Respiratory symptoms: Negative except as documented in HPI. Cardiovascular symptoms: Negative except as documented in HPI. Gastrointestinal symptoms: Negative except as documented in HPI. Genitourinary symptoms: Negative except as documented in HPI. Musculoskeletal symptoms: Negative except as documented in HPI. Neurologic symptoms: Negative except as documented in HPI. Psychiatric symptoms: Negative except as documented in HPI. Endocrine symptoms: Negative except as documented in HPI. PFS ED PFSH: Medical History (Updated 05/30/25 @ 17:08 by Wilda Coyne MD) Hx of hyperlipidemia Family hx of colon cancer Hx of cardiac murmur Hx of chronic arthritis Urinary frequency BPH loc w urin obs/LUTS Recurrent UTI Lower urinary tract symptoms (LUTS) History of hypertension Surgical History Hx of appendectomy Hx of colonoscopy Hx of nasal sinusotomy Hx of tonsillectomy Hx of hernia repair Hx of aortic valve replacement Family History Father , AT AGE 84 PROSTATE CANCER Cancer Lung disease Stroke Sister Cancer BREAST Lung disease Mother , at age 62 Aortic aneurysm CAD (coronary artery disease) Denies family history of Diabetes Clotting disorder Dementia Chronic kidney disease (CKD) Suicide Anesthesia complication Bleeding disorder Social History Smoking and tobacco/nicotine status: never used tobacco/nicotine Alcohol intake: former Marital status: Current occupational status: retired Physical Exam Narrative: EXAM NARRATIVE: General: Alert, no acute distress. Skin: Warm, dry. Head: Normocephalic, atraumatic. Neck: Supple, trachea midline. Eye: Extraocular movements are intact. Ears, nose, mouth and throat: mucosa moist. Cardiovascular: Regular, Normal peripheral perfusion. Respiratory: Lungs are clear to auscultation, respirations are non-labored, breath sounds are equal, Symmetrical chest wall expansion. Gastrointestinal: Soft, Nontender, Non distended Musculoskeletal: Normal ROM, no deformity. Neurological: Alert and oriented, No focal neurological deficit observed. Psychiatric: Cooperative, appropriate mood & affect. Course Vital Signs: Vital signs: Vital Signs Temperature 100.0 F H 05/30/25 15:36 Pulse Rate 85 05/30/25 17:44 Respiratory Rate 16 05/30/25 17:44 Blood Pressure 110/55 05/30/25 17:44 Pulse Oximetry 92 05/30/25 17:44 Oxygen Delivery Me thod Room Air 05/30/25 16:44 MDM - SOB/Dyspnea Medical Decision Making Differential diagnosis for patient with shortness of breath includes but is not limited to and based on the above HPI, review of systems and physical exam: Pneumonia. Bronchitis. Asthma or COPD with acute exacerbation. Acute coronary syndrome / ME. Pulmonary embolism. Anxiety. Congestive heart failure. Viral infections including influenza and Covid-19. Atrial fibrillation. Anxiety. Pleural effusion. Pneumothorax. Orders placed to evaluate differential diagnosis based on the above differential, HPI and physical exam EKG: Time 1540. Rate 99. Normal sinus rhythm, No ST-T changes, PVCs, normal MD and QRS intervals, this was reviewed and interpreted by myself the ER physician at 1545 Repeat EKG: Time 1741. Rate 79. Normal sinus rhythm, nonspecific ST changes, no ectopy, normal MD & QRS intervals, This was reviewed and interpreted by myself the ER physician at 1746. No acute changes from previous except a little more tachycardic. Likely was taken just after he had been walked to see if he dropped his sats Chest x-ray: No acute process. No infiltrate. No pneumothorax. This was reviewed and interpreted by myself the emergency room physician. I also reviewed the radiology report. Lab Review: Laboratory results were reviewed and interpreted by myself the emergency room physician. Leukocytosis with a white count of 15,000. With a bit of a left shift at 88%. Lactic acid however is negative at 1.1. BUN/creatinine are around his baseline at 25 and 1.1. Urinalysis is negative for infection. Flu COVID and RSV are negative. Initial troponin was 41 and repeat was 40. No significant change. This is his baseline. Likely related to his kidney function Sepsis alert: Patient does have a bit of a white count but lactate is negative and he says he does not feel very sick. We discussed admission for IV antibiotics and he wants to try going home and if he gets sicker he will have a low threshold to return. I reviewed the patient's medical record. Reexamination: Patient remained stable. No increased work of breathing. No altered mental status. No focal motor deficits. Patient has not had any oxygen requirements. I discussed with him that I could admit him into the he did have a white count but his lactate was negative. He says he does not feel very sick and he would like to go home on antibiotics and will return if he gets any sicker at all. Assessment and plan: Bronchitis/upper respiratory infection ?Normal saline bolus. IV doxycycline in the emergency room. - Discharged home - Discussed plan with patient. Answered any questions. - Evaluation and treatment of this problem were appropriate in the emergency setting. Lab Data 05/30/25 15:57 05/30/25 15:57 Labs/Radiology: Radiology Impressions Chest X-Ray 05/30/25 15:38 IMPRESSION: 1. No acute cardiopulmonary finding. Chronic changes as detailed above. Laboratory Results WBC 15.05 10^3/uL (3.29-11.43) H 05/30/25 15:57 RBC 4.44 10^6/uL (3.85-5.65) 05/30/25 15:57 Hgb 13.40 g/dL (11.27-16.99) 05/30/25 15:57 Hct 40.2 % (37-53) 05/30/25 15:57 MCV 90.5 fl (82-101) 05/30/25 15:57 MCH 30.2 pg (27-33) 05/30/25 15:57 MCHC 33.3 g/dL (30-55) 05/30/25 15:57 RDW 14.1 % (12.1-15.1) 05/30/25 15:57 Plt Count 175 10^3/cmm (157-399) 05/30/25 15:57 MPV 9.9 fL (7.4-10.4) 05/30/25 15:57 Neut % (Auto) 88.4 % 05/30/25 15:57 Lymph % (Auto) 4.9 % 05/30/25 15:57 Bledsoe % (Auto) 5.4 % 05/30/25 15:57 Eos % (Auto) 0.5 % 05/30/25 15:57 Baso % (Auto) 0.3 % 05/30/25 15:57 Neut # (Auto) 13.31 10^3/uL (1.8-7.7) H 05/30/25 15:57 Lymph # (Auto) 0.7 10^3/uL (0.8-4.8) L 05/30/25 15:57 Bledsoe # (Auto) 0.8 10^3/uL (0.2-0.9) 05/30/25 15:57 Eos # (Auto) 0.1 10^3/uL (0.0-0.8) 05/30/25 15:57 Baso # (Auto) 0.0 10^3/uL (0.0-0.1) 05/30/25 15:57 Nucleated RBC % (auto) 0 % 05/30/25 15:57 Nucleated RBCs # 0.0 /100WBC 05/30/25 15:57 Sodium 135 mmol/L (136-145) L 05/30/25 15:57 Potassium 3.8 mmol/L (3.5-5.1) 05/30/25 15:57 Chloride 100 mmol/L (98-107) 05/30/25 15:57 Carbon Dioxide 23 mmol/L (22-29) 05/30/25 15:57 Anion Gap 15.8 (5-19) 05/30/25 15:57 BUN 25 mg/dL (8-23) H 05/30/25 15:57 Creatinine 1.1 mg/dL (0.7-1.2) 05/30/25 15:57 GFR Calculation Not Reportable 05/30/25 15:57 Glucose 118 mg/dL (65-115) H 05/30/25 15:57 Calculated Osmolality 285 mOsm/kg (285-295) 05/30/25 15:57 Lactic Acid 1.1 mmol/L (0.5-2.2) 05/30/25 15:57 Calcium 9.3 mg/dL (8.5-10.5) 05/30/25 15:57 Total Bilirubin 1.1 mg/dL (0.15-1.2) 05/30/25 15:57 AST 41 U/L (0-40) H 05/30/25 15:57 ALT 36 U/L (0-41) 05/30/25 15:57 Alkaline Phosphatase 59 U/L (40-130) 05/30/25 15:57 Troponin T Baseline 41 ng/L (0-15) H 05/30/25 15:57 Troponin T 120 Minute 39.81 ng/L (0-15) H 05/30/25 17:07 Delta Troponin T -1.19 ABS# (0-10) L 05/30/25 17:07 C-Reactive Protein 78.8 mg/L (0.0-4.9) H 05/30/25 15:57 Total Protein 6.8 g/dL (6.6-8.7) 05/30/25 15:57 Albumin 4.3 g/dL (3.5-5.2) 05/30/25 15:57 Globulin 2.5 g/dL (1.3-4.6) 05/30/25 15:57 Urine Color Yellow (Yellow) 05/30/25 15:54 Urine Appearance Clear (CLEAR) 05/30/25 15:54 Urine pH 5.5 (5-7) 05/30/25 15:54 Ur Specific Clutier 1.012 (1.005-1.030) 05/30/25 15:54 Urine Protein Trace (Negative) A 05/30/25 15:54 Urine Glucose (UA) Negative (Normal) 05/30/25 15:54 Urine Ketones Negative (Negative) 05/30/25 15:54 Urine Blood Negative (Negative) 05/30/25 15:54 Urine Nitrate Negative (Negative) 05/30/25 15:54 Urine Bilirubin Negative (Negative) 05/30/25 15:54 Urine Urobilinogen 0.2 mg/dL (Negative) 05/30/25 15:54 Ur Leukocyte Esterase 1+ (Negative) A 05/30/25 15:54 Urine RBC 0-2 /hpf (0-2) 05/30/25 15:54 Urine WBC 21-50 /hpf (0-5) H 05/30/25 15:54 Ur Squamous Epith Cells 6-10 /hpf (0-5) 05/30/25 15:54 Amorphous Sediment Not Reportable 05/30/25 15:54 Urine Bacteria None seen /hpf (NONE) 05/30/25 15:54 Hyaline Casts 0.81 /lpf 05/30/25 15:54 Influenza A (PCR) Negative (Negative) 05/30/25 15:54 Influenza Type B (PCR) Negative (Negative) 05/30/25 15:54 RSV (PCR) Negative (Negative) 05/30/25 15:54 SARS-CoV-2 (PCR) Negative (Negative) 05/30/25 15:54 All radiology interpretation(s) finalized by discharge Discharge Plan Discharge Patient Disposition: Home Clinical Impression: Acute bronchitis Condition: Stable Prescriptions: New dexamethasone 6 mg tablet 6 mg PO DAILY 5 Days Qty: 5 0RF doxycycline monohydrate 100 mg capsule 100 mg PO BID 10 Days Qty: 20 0RF benzonatate 200 mg capsule 200 mg PO TID PRN (Reason: cough) Qty: 30 0RF No Action aspirin [Adult Aspirin Regimen] 81 mg tablet,delayed release (DR/EC) 81 mg PO QPM atorvastatin 40 mg tablet 40 mg PO QPM alfuzosin 10 mg tablet extended release 24 hr 10 mg PO QPM nitrofurantoin monohyd/m-cryst 100 mg capsule 100 mg PO BID losartan 25 mg tablet 25 mg PO QPM Men's Pack 0.4-250 mg-mcg Combo Pack 1 pkg PO BID Discharge Orders: Discharge ED (Routine); Ordered 05/30/25 Ordered By: Wilda Coyne Referrals: Daya Velez MD [Primary Care Provider, Family Practice] Discharge Diet: Usual diet Discharge Activity: Increase activity as tolerated Patient Instructions: Opioid Safety, Pain Management, Patient Portal & Mil[place]ro Instructions Activity Restrictions/Additional Instructions: Thank you for choosing [facility] for your healthcare needs today. You have been screened and evaluated and felt safe for discharge. Health conditions do change or evolve sometimes and as such it is important that you follow up with your Primary Doctor to be re checked, 3-5 days is a general good time frame for follow up. You are always welcome to return to the ED for re assessment if your symptoms are worsening or you have new concerns Print Language: [place] Citizen Coding Level of Care Code ED Financial Services Counselor for Angelia Lyman
[2025-05-30 16:10] LABS: Hematocrit 40.2 % (37-53); Hemoglobin 13.40 g/dL (11.27-16.99); Mean Corpuscular HGB Conc 33.3 g/dL (30-55); Mean Corpuscular Hemoglobin 30.2 pg (27-33); Mean Corpuscular Volume 90.5 fl (82-101); Nucleated Red Blood Cells % 0 %; Platelet Count 175 10^3/cmm (157-399); Red Blood Count 4.44 10^6/uL (3.85-5.65); White Blood Count 15.05 10^3/uL (3.29-11.43)
[2025-05-30 16:31] LABS: Glucose Urine UA Negative (Normal); Nitrate Urine Negative (Negative); Specific Gravity, Urine 1.012 (1.005-1.030)
[2025-05-30 16:32] LABS: Troponin(5th) Baseline 41 ng/L (0-15)
[2025-05-30 16:33] LABS: Lactic Sepsis W/Reflex 1.1 mmol/L (0.5-2.2)
[2025-05-30 16:43] LABS: Alanine Aminotransferase 36 U/L (0-41); Albumin Level 4.3 g/dL (3.5-5.2); Alkaline Phosphatase 59 U/L (40-130); Anion Gap 15.8 (5-19); Aspartate Amino Transferase 41 U/L (0-40); Blood Urea Nitrogen 25 mg/dL (8-23); Calcium 9.3 mg/dL (8.5-10.5); Carbon Dioxide 23 mmol/L (22-29); Chloride 100 mmol/L (98-107); Creatinine Clr Calc Pharmacy 56.9580; Globulin 2.5 g/dL (1.3-4.6); Glucose 118 mg/dL (65-115); Osmolality Calculated 285 mOsm/kg (285-295); Potassium 3.8 mmol/L (3.5-5.1); Sodium 135 mmol/L (136-145); Total Protein 6.8 g/dL (6.6-8.7)
[2025-05-30 16:56] LABS: Respiratory Syncytial Virus Ce NEGATIVE (Negative); SARS-CoV-2 PCR NEGATIVE (Negative)
[2025-05-30] MEDS: doxycycline 100 MG in sodium chloride 0.9% (plus) 100 ML IV (17:22)
--- NOTE | 2025-05-30 17:38 | ECG_ITS ---
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 Measurements Intervals [place] Rate: 91 P: 73 NV: 193 QRS: -25 QRSD: 117 T: 54 QT: 370 QTc: 455 Interpretive Statements SINUS RHYTHM WITH OCCASIONAL VENTRICULAR PREMATURE COMPLEXES AND SUPRAVENTRICULAR PREMATURE COMPLEXES SEPTAL MYOCARDIAL INFARCTION ,AGE INDETERMINATE Compared to ECG 05/30/2025 15:40:48 VENTRICULAR PREMATURE COMPLEXES now present Electronically Signed On 05-30-2025 22:40:56 CDT by Cameron Gregory M.D. [email or web address]
[2025-05-30 17:41] LABS: Troponin 5 2HR 39.81 ng/L (0-15); Troponin 5 2HR Delta -1.19 ABS# (0-10)
== END 2025-05-30 18:30 | disposition home or self-care (01) ==
PROVIDERS: Emergency Provider Emergency Medicine; PCP Family Medicine
DX: J20.9 Acute bronchitis, unspecified (principal); Z11.52 Encounter for screening for COVID-19; Z79.82 Long term (current) use of aspirin; E78.5 Hyperlipidemia, unspecified; I10 Essential (primary) hypertension
CPT/HCPCS: 36415; 71045; 80053; 81001; 83605; 84484; 85025; 86140; 87040; 87086; 87637; 93005; 96374; 96375; 99285; J1100; J3490; J7030; J9999